=== PATIENT | female | born 1965 | race Caucasian/White ===

== ENCOUNTER → 2022-07-28 09:26 | Outpatient (BNVA) | payer OTHER, SELFPAY | PROVIDERS: PCP Podiatrist Foot & Ankle Surgery; Visit Provider Anesthesiology | DX: M47.812 Spondylosis without myelopathy or radiculopathy, cervical region (principal); M50.30 Other cervical disc degeneration, unspecified cervical region; E11.40 Type 2 diabetes mellitus with diabetic neuropathy, unspecified; B35.1 Tinea unguium; M17.12 Unilateral primary osteoarthritis, left knee; G89.4 Chronic pain syndrome | CPT/HCPCS: 99202 ==

== ENCOUNTER 2022-12-09 10:15 | Day surgery (SDC) | payer OTHER, SELFPAY ==
[2022-12-02 14:55] VITALS: BMI 25.6
--- NOTE | 2022-12-09 | ECG_ITS ---
Test Reason : arrhythmia Blood Pressure : / mmHG Vent. Rate : 064 BPM Atrial Rate : 064 BPM P-R Int : 166 ms QRS Dur : 102 ms QT Int : 416 ms P-R-T Axes : 075 054 047 degrees QTc Int : 429 ms Normal sinus rhythm with sinus arrhythmia Normal ECG No previous ECGs available Referred By: Davi Haley Electronically Signed By:ALICIA EDMONDS MD
--- NOTE | ~2022-12-09 | FL_ITS ---
EXAMINATION: XR FLUOROSCOPY WITH IMAGES CLINICAL INFORMATION: Spinal cord stimulation trial COMPARISON: None. TECHNIQUE: Fluoroscopy Supervised By: Dr. Hung Tejada. Fluoroscopy Time: 2.6 minutes. Cumulative Dose: 55.5 mGy. DAP: 15.1 Gycm2. Images: 3. FINDINGS: There are 2 spinal stimulator electrodes seen ascending the posterior spinal canal. The electrode tips are at level of mid thoracic spine. There is no visible kinking or defect of the leads. FL/FL guidance in OR IMPRESSION: Fluoroscopy for pain management procedure.
[2022-12-09 10:41] LABS: Glucose, Whole Blood 87 mg/dL (60-115)
[2022-12-09] MEDS: Lactated Ringers 1,000 ML 50 ML IVCONT (10:47)
[2022-12-09 10:50] VITALS: BP 116/55; PULSE 83; RESP 18; TEMP 36.7; O2SAT 98
--- NOTE | 2022-12-09 11:24 | MHC.SHP ---
Pre-Procedural Eval Section A Date of Service: 12/09/22 Section B Chief Complaint: Type 2 diabetes mellitus with diabetic neuropathy, Details of Present Illness: as above Relevant Family History (Specify if Yes): No Relevant Social History: Other (specify) Present Medications: None Medical History: No relevant PMH History of Previous Operations: No relevant previous surgery Allergies: Allergies Allergy/AdvReac Type Severity Reaction Status Date / Time bupropion [From Wellbutrin] Allergy throat Verified 12/09/22 10:55 closes - hives clonidine Allergy throat Verified 12/09/22 10:55 closes levofloxacin Allergy Becomes Verified 12/09/22 10:55 Violent varenicline [From Chantix] Allergy Violent Verified 12/09/22 10:55 Behavior Review of Systems Sugical H&P ROS: Negative: Cardiovascular, Respiratory, Neurological, Psychiatric, Hem-Onc, Allergic/Immunologic, Gastrointestinal, Genitourinary, Musculoskeletal, Integumentary, Endocrine and Eyes/Ears/Nose/Throat and Yes, Specify: Constitution (morbid obesity) Exam Surgical H&P Exam: Normal: HEENT, Normal: Heart, Normal: Lungs, Normal: Extremities, Normal: Abdomen, Normal: Skin and Normal: Neurological Plan Diagnosis/Plan: Unchanged I have reviewed the history and physical and performed a pertinent physical examination on my patient. No changes have occurred unless specified. Time Spent With Patient Time: Total time managing care of this patient today ____ minutes.
--- NOTE | 2022-12-09 11:29 | HO.ANESPROP2 ---
HPI - Anesthesia Eval Consult details Narrative: 57 F for spinal cord stim trial Denies any Chest pain , or any other heart issues . h/o drug induced cva in the past with left sided weakness , weakness resolved . [facility] Active Problems Active Problems: All Active Problems (Updated 12/02/22 @ 14:27 by Lauren Hoskins RN) Spondylosis of cervical joint without myelopathy (Acute) Degeneration, intervertebral disc, cervical (Acute) Diabetic neuropathy (Acute) Onychomycosis (Acute) Arthritis of left knee (Acute) Chronic pain syndrome (Acute) Past Medical History Medical History Abnormal MRI Agoraphobia Anxiety Bipolar 1 disorder Chronic low back pain Chronic pain of left knee Chronic rhinitis Cigarette smoker Colon polyps COPD (chronic obstructive pulmonary disease) Depression GERD (gastroesophageal reflux disease) History of breast cancer History of CVA (cerebrovascular accident) History of ovarian cancer History of seizure History of substance abuse Hyperlipidemia Iron deficiency Migraines Neck pain HAL (obstructive sleep apnea) PTSD (post-traumatic stress disorder) Severe cervical dysplasia, histologically confirmed Toenail fungus Type 2 diabetes mellitus Urinary and fecal incontinence Vitamin B12 deficiency Vitamin D deficiency Functional capacity: independent ambulation Family History Family history of problems with anesthesia: No Surgical History Surgical History History of bladder suspension procedure History of left knee surgery History of lumpectomy of right breast History of rhinoplasty History of right inguinal hernia repair Hx of colonoscopy Hx of total hysterectomy History of Problems with Anesthesia: No Social History Social History Household Members Other:: Twin Sister Are you a primary housekeeper caregiver to a significant other at home: No Do you presently have visiting nurse or other home services: Yes (Home Health Aid) Patient Tobacco Use Status: Former Tobacco user Quit Date: 2021 Tobacco use type: Cigarette Years Smoked: 45 Use of substances other than those prescribed or required for medical reasons: No Have you been hit, kicked, punched, or otherwise hurt by someone within the past year? If so, by whom?: No Are you DNR?: No Advance Directives: No Advance Directives Information Provided: Yes Advance Directives on File: No Recently lost weight without trying: No Eating poorly because of decreased appetite: No Nutrition Risks: No Nutritional Risk Patient : No Meds Allergies Allergy/AdvReac Type Severity Reaction Status Date / Time bupropion [From Wellbutrin] Allergy throat Verified 12/09/22 10:55 closes - hives clonidine Allergy throat Verified 12/09/22 10:55 closes levofloxacin Allergy Becomes Verified 12/09/22 10:55 Violent varenicline [From Chantix] Allergy Violent Verified 12/09/22 10:55 Behavior Active Medications: Current Medications Lactated Ringer's (Lr) 1,000 mls @ 50 mls/hr IVCONT .Q20H LI Last Admin: 12/09/22 10:47 Dose: 50 mls/hr Home Medications Medication Instructions Recorded Confirmed Last Taken Type amitriptyline 10 mg tablet 10 mg PO BEDTIME 07/28/22 12/02/22 Unknown History atorvastatin 20 mg tablet 20 mg PO DAILY 07/28/22 12/02/22 Unknown History azelastine 137 mcg (0.1 %) nasal 2 spray intranasal BID 07/28/22 12/02/22 Unknown History spray aerosol cetirizine 10 mg tablet 10 mg PO DAILY 07/28/22 12/02/22 Unknown History famotidine 20 mg tablet 20 mg PO BID 07/28/22 12/02/22 12/09/22 History fluticasone propionate 230 2 puff inhalation BID 07/28/22 12/02/22 12/09/22 History mcg-salmeterol 21 mcg/actuation HFA inhaler (Advair HFA) glucagon 1 mg solution for mg IM ONCE PRN diabetes mellitus 07/28/22 Unknown History injection (Glucagon Emergency Kit) hydroxyzine pamoate 25 mg capsule 25 mg PO BID 07/28/22 12/02/22 12/09/22 History ipratropium bromide 17 2 puff inhalation QID 07/28/22 12/02/22 12/09/22 History mcg/actuation HFA aerosol inhaler (Atrovent HFA) lisinopril 10 mg tablet 10 mg PO DAILY 07/28/22 12/02/22 Unknown History metformin 1,000 mg tablet 1,000 mg PO BID 07/28/22 12/02/22 Unknown History sumatriptan succinate 100 mg tablet 0 mg PO PRN Migraine Headache 07/28/22 Unknown History temazepam 30 mg capsule 30 mg PO BEDTIME PRN insomnia 07/28/22 12/02/22 Unknown History cholecalciferol (vitamin D3) 25 1 cap PO DAILY 12/02/22 12/02/22 Unknown History mcg (1,000 unit) capsule (Vitamin D3) cyanocobalamin (vitamin B-12) 250 1 tab PO DAILY 12/02/22 12/02/22 Unknown History mcg tablet ferrous sulfate 325 mg (65 mg 1 tab PO DAILY 12/02/22 12/02/22 12/02/22 History iron) tablet (FeroSul) melatonin 3 mg tablet 1 - 2 tab PO BEDTIME PRN insomnia 12/02/22 12/02/22 Unknown History triamcinolone acetonide 55 mcg 1 spray intranasal DAILY 12/02/22 12/02/22 12/09/22 History nasal spray aerosol (Nasacort) Exam Exam Date and Time: December 09, 2022 112 Height,Weight and Vital Signs: Height 5 ft 10.5 in Weight 82.1 kg Last Vital Signs Temp 98.1 F 12/09/22 10:50 Pulse 83 12/09/22 10:50 Resp 18 12/09/22 10:50 BP 116/55 L 12/09/22 10:50 Pulse Ox 98 12/09/22 10:50 O2 Del Method 12/09/22 10:50 Pertinent Lab Results Pertinent Lab Results: Laboratory Tests 12/09/22 10:37 POC Glucose 87 Airway Mallampati Class: IV Neck ROM: Limited Denture: Upper and Lower Loose/Missing/Broken Teeth: Yes Heart: S1,S2 Lungs: b/l breath sounds Assessment and Plan Assessment Anesthesia Assessment: Anesthesia Plan Discussed and Chart Reviewed Final Anesthetic Review Family History of Problems with Anesthesia: No History of Problems with Anesthesia: No NPO: Yes ASA Class: IV Final Preanesthetic Review: Meds/Allgs Chart Reviewed, Consent Obtained/Reviewed and Anes Risks/Benef Reviewed Patient Risk: High Procedure Risk: Intermediate Anesthetic Plan Anesthetic Plan: MAC: Disposition: Standard PACU
[2022-12-09 12:41] VITALS: BP 131/65; PULSE 75; RESP 18; TEMP 36.5; O2SAT 98
--- NOTE | 2022-12-09 12:44 | P.BOP_ITS ---
Brief Operative Note Date of Service: 12/09/22 Pre-op diagnosis: diabetic peripheral polyneuropathy Post-op diagnosis: same Procedure: trial of SCS Adenikero Surgeon: Hung Tejada MD Anesthesia: MAC Was an [employer] used for this Procedure?: No Estimated blood loss (mL): 2 Pathology: none sent Condition: stable Disposition: PACU
--- NOTE | 2022-12-09 12:45 | P.OP_ITS ---
Operative Note Operative Note Date of Service: 12/09/22 Narrative: Sarah JIMENEZ is a very pleasant 57 years old female who came today into the operating room for the trial of spinal cord stimulator Nevro for the treatment of DPN. Preoperatively patient received? Cefazolin 2 g? approximately 30 min before procedure. After obtaining informed consent patient was brought to the operating room,? she was positioned? supine on the stretcher, [employer] [employer] monitors were applied and patient ? was sedated. ? Time-out was performed delineating correct site, side, the nature of the procedure, patient's allergy, preoperative antibiotic if needed.? All operating room staff was participating in OR time-out procedure. Patient's entire back was prepped with ChloraPrep twice and draped with full body fenestrated drape.? Sterilely draped C-arm was brought over operating field and sqare picture of T11-T12 L1 L2 vertebrae as were demonstrated on the screen.??? Attention FIRST? was concentrated on the L1-L2 epidural interspace? on the right. The location of the projection of the right pedicle? upper portion of the _L3 vertebra was found on the skin using C-arm. .? This location was injected with mixture of lidocaine 2% and ropivacaine 0.5% 5 cc.? After that 11 blade was used to make a yoan on the skin.? 10 cm 14 gauge introducer epidural needle was inserted through the yoan and advanced to L1-L2 epidural interspace.? The advancement of the needle was performed on anterior posterior and lateral views.?RUIZ to air was used to detect epidural space.? When needle entered the epidural space loss of resistance was felt and guitar wire inserted in the epidural fashion.? After that epidural lead was advanced into the needle and proceed into posterior epidural space slightly left to the midline until it reached bottom T8 vertebra projection.. After that attention was concentrated on the left side where incertion of the epidural lead was performed in mirroring fashion. This time the tip of the lead was stopped at the top of T10 vertebra projection.. Position of the both of the leads were verified in the posterior epidural space by the two separate lateral views. The needle was withdrawn, care was taken not to dislodge the epidural lead.? Anchoring device was advanced? on the epidural leads until it reached the level of the skin.? The anchoring device was stitched to the skin with 2 0- 0 silk sutures and anchoring screw was? Tightened up upon the anchoring device until 3 clicks were heard. ?the distal end of the epidural lead was connected to the testing device.? Sterile dressing was applied.? At this moment the patient was awaken transferred to recovery room where she recovered uneventfully.? She went home without immediate complications.
[2022-12-09 12:56] VITALS: BP 141/67; PULSE 66; RESP 16; O2SAT 99
[2022-12-09 13:11] VITALS: BP 142/59; PULSE 63; RESP 16; O2SAT 100
[2022-12-09 13:26] VITALS: BP 135/67; PULSE 65; RESP 18; O2SAT 99
--- NOTE | 2022-12-09 13:32 | HO.POSTANES ---
Post Anesthesia Evaluation Post Anesthesia Evaluation Vital Signs: Vital Signs Temp Pulse Resp BP Pulse Ox O2 Del Method 12/09/22 13:26 65 18 135/67 99 Room Air 12/09/22 13:11 63 16 142/59 H 100 Room Air 12/09/22 12:56 66 16 141/67 H 99 Room Air 12/09/22 12:41 97.7 F 75 18 131/65 98 Room Air 12/09/22 10:50 98.1 F 83 18 116/55 L 98 Room Air Anesthesia: Monitored Mental Status: Awake Pain Control: Satisfactory Nausea/Vomiting: None Hydration: Adequate Anesthesia-Related Issues: No Anes. Related Issues Comments: Intr-op / post op patient found to be in sinus arrhythmia. Patient asymptomatic currently, she does endorse occasional dizziness . Advised to follow-up with PCP and possibly cardiology .
[2022-12-09 13:41] VITALS: BP 125/58; PULSE 65; RESP 18; TEMP 36.2; O2SAT 99
[2022-12-09 13:51] LABS: Glucose, Whole Blood 124 mg/dL (60-115)
== END 2022-12-09 14:23 | disposition home or self-care (01) ==
PROVIDERS: PCP Internal Medicine; Visit Provider Anesthesiology
PROC: (CPT 63650; principal; 2022-12-09 11:30)
DX: M47.812 Spondylosis without myelopathy or radiculopathy, cervical region (principal); M50.30 Other cervical disc degeneration, unspecified cervical region; E11.42 Type 2 diabetes mellitus with diabetic polyneuropathy; M54.50 Low back pain, unspecified; G89.4 Chronic pain syndrome; M17.12 Unilateral primary osteoarthritis, left knee; G43.909 Migraine, unspecified, not intractable, without status migrainosus; E55.9 Vitamin D deficiency, unspecified; G47.33 Obstructive sleep apnea (adult) (pediatric); Z79.84 Long term (current) use of oral hypoglycemic drugs; Z79.899 Other long term (current) drug therapy; Z88.8 Allergy status to other drugs, medicaments and biological substances
CPT/HCPCS: 63650 ×2; 82947; 93005; C1713; C1897; J0690; J2250; J2795; J3010

== ENCOUNTER → 2022-12-16 10:34 | Outpatient (BNVA) | payer OTHER, SELFPAY | PROVIDERS: PCP Internal Medicine; Visit Provider Anesthesiology | DX: M47.812 Spondylosis without myelopathy or radiculopathy, cervical region (principal); M50.30 Other cervical disc degeneration, unspecified cervical region; M17.12 Unilateral primary osteoarthritis, left knee; E11.40 Type 2 diabetes mellitus with diabetic neuropathy, unspecified; B35.1 Tinea unguium; G89.4 Chronic pain syndrome | CPT/HCPCS: 99212 ==

== ENCOUNTER 2023-01-07 08:36 | Day surgery (SDC) | payer OTHER, SELFPAY ==
[2023-01-04 11:11] VITALS: BMI 25.6
--- NOTE | 2023-01-06 12:36 | HO.ANESPROP2 ---
Documented by User: Madhuri Spring NP 01/06/23 12:39 HPI - Anesthesia Eval Consult details Narrative: 57yo F for Spinal Cord Stimulator Implant s/p trial 12/2022 with TIVA h/o drug induced cva in the past with left sided weakness , weakness? resolved . [facility] Active Problems Active Problems: All Active Problems (Updated 12/02/22 @ 14:27 by Lauren Hoskins RN) Spondylosis of cervical joint without myelopathy (Acute) Degeneration, intervertebral disc, cervical (Acute) Diabetic neuropathy (Acute) Onychomycosis (Acute) Arthritis of left knee (Acute) Chronic pain syndrome (Acute) Past Medical History Medical History Abnormal MRI Agoraphobia Anxiety Bipolar 1 disorder Chronic low back pain Chronic pain of left knee Chronic rhinitis Cigarette smoker Colon polyps COPD (chronic obstructive pulmonary disease) Depression GERD (gastroesophageal reflux disease) History of breast cancer History of CVA (cerebrovascular accident) History of ovarian cancer History of seizure History of substance abuse Hyperlipidemia Iron deficiency Migraines Neck pain HAL (obstructive sleep apnea) PTSD (post-traumatic stress disorder) Severe cervical dysplasia, histologically confirmed Toenail fungus Type 2 diabetes mellitus Urinary and fecal incontinence Vitamin B12 deficiency Vitamin D deficiency Family History Family history of problems with anesthesia: No Surgical History Surgical History History of bladder suspension procedure History of left knee surgery History of lumpectomy of right breast History of rhinoplasty History of right inguinal hernia repair Hx of colonoscopy Hx of total hysterectomy S/P placement of nerve stimulator History of Problems with Anesthesia: No Social History Social History Household Members Other:: Twin Sister Are you a primary career development specialist to a significant other at home: No Do you presently have visiting nurse or other home services: Yes (home health aid) Patient Tobacco Use Status: Former Tobacco user Quit Date: 2021 Tobacco use type: Cigarette Years Smoked: 45 Use of substances other than those prescribed or required for medical reasons: No Have you been hit, kicked, punched, or otherwise hurt by someone within the past year? If so, by whom?: No Are you DNR?: No Advance Directives: No Advance Directives Information Provided: Yes (brochure mailed) Advance Directives on File: No Recently lost weight without trying: No Eating poorly because of decreased appetite: No Nutrition Risks: No Nutritional Risk Meds Allergies Allergy/AdvReac Type Severity Reaction Status Date / Time bupropion [From Wellbutrin] Allergy throat Verified 12/16/22 10:54 closes - hives clonidine Allergy throat Verified 12/16/22 10:54 closes levofloxacin Allergy Becomes Verified 12/16/22 10:54 Violent varenicline [From Chantix] Allergy Violent Verified 12/16/22 10:54 Behavior Home Medications Medication Instructions Recorded Confirmed Last Taken Type amitriptyline 10 mg tablet 10 mg PO BEDTIME 07/28/22 01/04/23 Unknown History atorvastatin 20 mg tablet 20 mg PO DAILY 07/28/22 01/04/23 Unknown History azelastine 137 mcg (0.1 %) nasal 2 spray intranasal BID 07/28/22 01/04/23 Unknown History spray aerosol cetirizine 10 mg tablet 10 mg PO DAILY 07/28/22 01/04/23 Unknown History famotidine 20 mg tablet 20 mg PO BID 07/28/22 01/04/23 12/09/22 History fluticasone propionate 230 2 puff inhalation BID 07/28/22 01/04/23 12/09/22 History mcg-salmeterol 21 mcg/actuation HFA inhaler (Advair HFA) glucagon 1 mg solution for 1 mg IM ONCE PRN diabetes mellitus 07/28/22 01/04/23 Unknown History injection (Glucagon Emergency Kit) hydroxyzine pamoate 25 mg capsule 25 mg PO BID 07/28/22 01/04/23 12/09/22 History ipratropium bromide 17 2 puff inhalation QID 07/28/22 01/04/23 12/09/22 History mcg/actuation HFA aerosol inhaler (Atrovent HFA) lisinopril 10 mg tablet 10 mg PO DAILY 07/28/22 01/04/23 Unknown History metformin 1,000 mg tablet 1,000 mg PO BID 07/28/22 01/04/23 Unknown History sumatriptan succinate 100 mg tablet 100 mg PO DAILY PRN Migraine 07/28/22 01/04/23 Unknown History Headache temazepam 30 mg capsule 30 mg PO BEDTIME PRN insomnia 07/28/22 01/04/23 Unknown History cholecalciferol (vitamin D3) 25 1 cap PO DAILY 12/02/22 01/04/23 Unknown History mcg (1,000 unit) capsule (Vitamin D3) cyanocobalamin (vitamin B-12) 250 1 tab PO DAILY 12/02/22 01/04/23 Unknown History mcg tablet ferrous sulfate 325 mg (65 mg 1 tab PO DAILY 12/02/22 01/04/23 12/02/22 History iron) tablet (FeroSul) melatonin 3 mg tablet 1 - 2 tab PO BEDTIME PRN insomnia 12/02/22 01/04/23 Unknown History triamcinolone acetonide 55 mcg 1 spray intranasal DAILY 12/02/22 01/04/23 12/09/22 History nasal spray aerosol (Nasacort) clonazepam 1 mg tablet 1 mg PO DAILY 12/16/22 01/04/23 Unknown History lidocaine 5 % topical patch 1 patch topical DAILY 12/16/22 01/04/23 Unknown History methocarbamol 750 mg tablet 750 mg PO TID 12/16/22 01/04/23 Unknown History Exam Exam Date and Time: January 06, 2023 1236 Height,Weight and Vital Signs: Height 5 ft 10.5 in Weight 82.1 kg Narrative Narrative: EKG 12/2022 Vent. Rate : 064 BPM ? ? Atrial Rate : 064 BPM ?? P-R Int : 166 ms? QRS Dur : 102 ms ? ? QT Int : 416 ms ? ? ? P-R-T Axes : 075 054 047 degrees ?? QTc Int : 429 ms ? Normal sinus rhythm with sinus arrhythmia Normal ECG No previous ECGs available Assessment and Plan Assessment Anesthesia Assessment: Chart Reviewed Final Anesthetic Review Family History of Problems with Anesthesia: No History of Problems with Anesthesia: No Documented by User: Enriqueta Jones MD 01/07/23 10:29 [facility] Past Medical History Medical History Abnormal MRI Agoraphobia Anxiety Bipolar 1 disorder Chronic low back pain Chronic pain of left knee Chronic rhinitis Cigarette smoker Colon polyps COPD (chronic obstructive pulmonary disease) Depression GERD (gastroesophageal reflux disease) History of breast cancer History of CVA (cerebrovascular accident) History of ovarian cancer History of seizure History of substance abuse Hyperlipidemia Iron deficiency Migraines Neck pain HAL (obstructive sleep apnea) PTSD (post-traumatic stress disorder) Severe cervical dysplasia, histologically confirmed Toenail fungus Type 2 diabetes mellitus Urinary and fecal incontinence Vitamin B12 deficiency Vitamin D deficiency Patient : No Surgical History Surgical History History of bladder suspension procedure History of left knee surgery History of lumpectomy of right breast History of rhinoplasty History of right inguinal hernia repair Hx of colonoscopy Hx of total hysterectomy S/P placement of nerve stimulator Social History Social History Household Members Other:: Twin Sister Are you a primary career development specialist to a significant other at home: No Do you presently have visiting nurse or other home services: Yes (home health aid) Patient Tobacco Use Status: Former Tobacco user Quit Date: 2021 Tobacco use type: Cigarette Years Smoked: 45 Use of substances other than those prescribed or required for medical reasons: No Have you been hit, kicked, punched, or otherwise hurt by someone within the past year? If so, by whom?: No Are you DNR?: No Advance Directives: No Advance Directives Information Provided: Yes (brochure mailed) Advance Directives on File: No Recently lost weight without trying: No Eating poorly because of decreased appetite: No Nutrition Risks: No Nutritional Risk Meds Allergies Allergy/AdvReac Type Severity Reaction Status Date / Time bupropion [From Wellbutrin] Allergy throat Verified 12/16/22 10:54 closes - hives clonidine Allergy throat Verified 12/16/22 10:54 closes levofloxacin Allergy Becomes Verified 12/16/22 10:54 Violent varenicline [From Chantix] Allergy Violent Verified 12/16/22 10:54 Behavior Home Medications Medication Instructions Recorded Confirmed Last Taken Type amitriptyline 10 mg tablet 10 mg PO BEDTIME 07/28/22 01/04/23 Unknown History atorvastatin 20 mg tablet 20 mg PO DAILY 07/28/22 01/04/23 Unknown History azelastine 137 mcg (0.1 %) nasal 2 spray intranasal BID 07/28/22 01/04/23 Unknown History spray aerosol cetirizine 10 mg tablet 10 mg PO DAILY 07/28/22 01/04/23 Unknown History famotidine 20 mg tablet 20 mg PO BID 07/28/22 01/04/23 12/09/22 History fluticasone propionate 230 2 puff inhalation BID 07/28/22 01/04/23 12/09/22 History mcg-salmeterol 21 mcg/actuation HFA inhaler (Advair HFA) glucagon 1 mg solution for 1 mg IM ONCE PRN diabetes mellitus 07/28/22 01/04/23 Unknown History injection (Glucagon Emergency Kit) hydroxyzine pamoate 25 mg capsule 25 mg PO BID 07/28/22 01/04/23 12/09/22 History ipratropium bromide 17 2 puff inhalation QID 07/28/22 01/04/23 12/09/22 History mcg/actuation HFA aerosol inhaler (Atrovent HFA) lisinopril 10 mg tablet 10 mg PO DAILY 07/28/22 01/04/23 Unknown History metformin 1,000 mg tablet 1,000 mg PO BID 07/28/22 01/04/23 Unknown History sumatriptan succinate 100 mg tablet 100 mg PO DAILY PRN Migraine 07/28/22 01/04/23 Unknown History Headache temazepam 30 mg capsule 30 mg PO BEDTIME PRN insomnia 07/28/22 01/04/23 Unknown History cholecalciferol (vitamin D3) 25 1 cap PO DAILY 12/02/22 01/04/23 Unknown History mcg (1,000 unit) capsule (Vitamin D3) cyanocobalamin (vitamin B-12) 250 1 tab PO DAILY 12/02/22 01/04/23 Unknown History mcg tablet ferrous sulfate 325 mg (65 mg 1 tab PO DAILY 12/02/22 01/04/23 12/02/22 History iron) tablet (FeroSul) melatonin 3 mg tablet 1 - 2 tab PO BEDTIME PRN insomnia 12/02/22 01/04/23 Unknown History triamcinolone acetonide 55 mcg 1 spray intranasal DAILY 12/02/22 01/04/23 12/09/22 History nasal spray aerosol (Nasacort) clonazepam 1 mg tablet 1 mg PO DAILY 12/16/22 01/04/23 Unknown History lidocaine 5 % topical patch 1 patch topical DAILY 12/16/22 01/04/23 Unknown History methocarbamol 750 mg tablet 750 mg PO TID 12/16/22 01/04/23 Unknown History Exam Airway Mallampati Class: II TM Dist: >3cm Neck ROM: Full Denture: Upper and Lower Heart: RRR Lungs: CTA Assessment and Plan Final Anesthetic Review NPO: Yes ASA Class: III Final Preanesthetic Review: No Changes in Pt Med Stat, Meds/Allgs Chart Reviewed, Consent Obtained/Reviewed and Anes Risks/Benef Reviewed Patient Risk: Intermediate Procedure Risk: Low Anesthetic Plan Anesthetic Plan: MAC: Disposition: Standard PACU
[2023-01-07] VITALS (10 sets, daily range): BP systolic 119–163; BP diastolic 55–85; PULSE 52–103; RESP 16–20; TEMP 36.1–36.9; O2SAT 95–100
--- NOTE | ~2023-01-07 | FL_ITS ---
EXAMINATION: XR FLUOROSCOPY WITH IMAGES CLINICAL INFORMATION: Spinal stimulator implant. COMPARISON: Fluoroscopic spot views 12/09/2022. TECHNIQUE: Fluoroscopy Supervised By: Dr. Hung Tejada. Fluoroscopy Time: 3.6 minutes. Cumulative Dose: 64.3 mGy. DAP: 17.1 Gycm2. Images: 2. FINDINGS: There are 2 spinal stimulator electrodes seen ascending the posterior spinal canal. The electrode tips are at level of mid thoracic spine. There is no visible kinking or defect of the leads. There are multilevel degenerative changes thoracic spine with variable disc narrowing and vertebral spurring. FL/FL guidance in OR IMPRESSION: Fluoroscopy for pain management procedure.
--- NOTE | 2023-01-07 09:21 | P.HPSUR_ITS ---
Pre-Procedural Eval Section A Date of Service: 01/07/23 The patient is an INPATIENT: No Changes since office visit: Yes Patient answered all questions The History & Physical has been completed within 30 days and I have reviewed it.: No Section B Chief Complaint: Type 2 diabetes mellitus with diabetic neuropathy, Details of Present Illness: as above Relevant Family History (Specify if Yes): No Relevant Social History: None Present Medications: see Short Stay Collaborative assessment Medical History: No relevant PMH History of Previous Operations: Relevant previous surgery/procedure and date(s) Allergies: Allergies Allergy/AdvReac Type Severity Reaction Status Date / Time bupropion [From Wellbutrin] Allergy throat Verified 12/16/22 10:54 closes - hives clonidine Allergy throat Verified 12/16/22 10:54 closes levofloxacin Allergy Becomes Verified 12/16/22 10:54 Violent varenicline [From Chantix] Allergy Violent Verified 12/16/22 10:54 Behavior Review of Systems Sugical H&P ROS: Negative: Cardiovascular, Respiratory, Psychiatric, Hem-Onc, Allergic/Immunologic, Gastrointestinal, Genitourinary, Musculoskeletal, Int egumentary and Eyes/Ears/Nose/Throat and Yes, Specify: Constitution (morbid obesity), Neurological (neuropathy of the lower extremities.) and Endocrine (Diabetes mellitus.) Exam Surgical H&P Exam: Normal: HEENT, Normal: Heart, Normal: Lungs, Normal: Extremities, Normal: Skin and Normal: Neurological and Significant Findings: Abdomen (enlarged 2 to i/a & s/q fat) Plan Diagnosis/Plan: Unchanged I have reviewed the history and physical and performed a pertinent physical examination on my patient. No changes have occurred unless specified. Time Spent With Patient Time: Total time managing care of this patient today ____ minutes.
[2023-01-07] MEDS: Lactated Ringers 1,000 ML 100 ML IVCONT (10:24)
[2023-01-07 10:39] LABS: Glucose, Whole Blood 130 mg/dL (60-115)
--- NOTE | 2023-01-07 10:39 | P.OP_ITS ---
Operative Note Operative Note Date of Service: 01/07/23 Narrative: Indira Menjivar is very pleasant 57 y.o. female who came today into the operating room for implantation of spinal cord stimulator for the treatment of chronic pain syndrome secondary DPN bilateral LE.. Preoperatively? patient received ?cefazolin 2 g approximately 30 minutes before the procedure. After obtaining informed consent the patient was brought to the operating room, She was positioned supine on the stretcher? [place] [employer] monitors were applied and general anesthesia was induced with endotracheal intubation.? After that patient was transferred to the operating table prone, all pressure points were protected. ?Time-out was performed delineating correct site, side, the nature of the procedure, patient's allergy, preoperative antibiotic if needed.? All operating room staff was participating in OR time-out procedure. Patient's entire back was prepped with ChloraPrep twice and draped with full body fenestrated drape and ioban film.? Sterilely draped C-arm was brought over operating field and square picture of? T12-L1 and D9xdankfook as were demonstrated on the screen.? The skin was? infiltrated with the mixture of lidocaine 2% and ropivacaine 0.5% in the projection of m L2 and L3? spinouse procesess.?? After that? number 10 Blade scalpel was used to perform strict midline 7 cm? long incision.? the incision was widened and deepened until the prevertebral fascia was reached. Thorough hemostasis was obtained,? After that attention? was concentrated on the L1-L2 epidural interspace.? The location of the projection of the right pedicle center of the? L3 vertebra was found on the fascia using C-arm.? This location was injected with mixture of lidocaine 2% and Marcaine 0.5% 5 cc.? ? 10 cm 14 gauge? introducer epidural needle was inserted through the prevertebral fascia and advanced to? L1- L2 epidural interspace.? The advancement of the needle was performed on anterior posterior and lateral views.? Guitar wire and loss of resistance technique were used to locate epid ural space.? When guitar wire was spread in the epidural fashion, epidural lead was inserted through the needle and it was advanced to the posterior epidural space.The lead was advanced strictly on the midline? approximately to the? top of T8 vertebra in the posterior epidural space. ? After that location of the projection of the LEFT pedicle center of the L3 vertebra was found using C-arm.? This location was injected with mixture of lidocaine 2% and Marcaine 0.5% 5 cc.?10 cm 14 gauge? introducer epidural needle was inserted through the fascia and advanced to L1- L2 epidural interspace.? The advancement of the needle was performed on anterior posterior and lateral views.? Guitar wire and loss of resistance technique were used to locate epidural space. When guitar wire was spread in the epidural fashion, epidural lead was inserted through the needle and it was advanced to the posterior epidural space.The lead was advanced strictly on the midline? approximately to the? mid of T9 vertebra in the posterior epidural space. After that the? epidural lead was advanced? slightly left to the midline? to the top of the? T9 vertebra in the posterior epidural space slightly left to the existing electrode.?On the lateral view the leads were demonstrated in the posterior epidural space. ? After satisfactory position of the leads were established the needles were withdrawn, the stylette wires were removed from the epidural leads.? The anchoring devices were dislodged on the leads and advanced to the level of the prevertebral fascia.?After that the anchoring devices were sutured to the prevertebral fascia using Tycron 0-0 sutures - 2 sutures per each anchoroing device?. The fixation scews were locked until 3 clicks heard. The wound was irrigated with vancomycin containing saline and packed with the 4x4 soaked with the same saline solution. After that attention was concentrated on the right upper buttock of the patient ? were the decision was made to implant the battery.? 3 cm below the top of the right iliac crest horizontal incision was made 6.5 cm long using 10 blade scalpel, hemostasis was performed using? electric cautery..? Using sharp and dull dissection pocket for the battery was formed in caudad direction from the incision.? Thorough hemostasis was performed.? After that the? wound pocket was? irrigated with vancomycin containing normal saline and tunneling device was used to connect midline incision and upper buttock incision.? The epidural leads were dislodged from midline incision to the buttock incision through the tunneling device.? After that they were connected to the Omnia battery? and impedance was checked? and found to be satisfactory with all leads connected.? There were no electrodes with low impedance noted.? Anchoring? screws were fixed on the back of the battery.? Tycron of 0- 0 sutures were applied to the superior lateral and superior medial corners of the upper portion of the pocket? wound and after that the anchoring sutures were connected to the anchoring orifices on the battery.? The leads were gathered behind the body of the battery and battery was dislodged into the? subcutaneous pocket wound.? The sutures were tied and? irrigation was repeated.? After that?0-0 Polysorb sutures?were used to close the? both wounds and the 0-2 polisorb sutures were used to apptoximate the level of the skin , Nasima were applied to the skin and bacitracin ointment was applied to the staple lines. The sterile dressing comprised of several 4x4 for each wound was affixed to the skin using tegaderm. The patient was transfered supine on the stretcher,? awaken, extubated and transferred stable to the PACU.? ?
--- NOTE | 2023-01-07 10:45 | PM.OP ---
Brief Operative Note Date of Service: 01/07/23 Pre-op diagnosis: peripheral diabetic polyneuropathy Post-op diagnosis: same Procedure: implantation of Nevro SCS Implants: SCS battery Omnia (NEVRO) and 2 epidural stimulating leads Surgeon: Hung Tejada MD Anesthesia: GETA Was an [employer] Project Manager used for this Procedure?: No Estimated blood loss (mL): 11 Pathology: none sent Condition: stable Disposition: PACU
[2023-01-07] MEDS: fentaNYL citrate/PF 100 MCG/2 ML VIAL 50 MCG IVPUSH ×2 (13:05→13:11)
--- NOTE | 2023-01-07 13:08 | HO.POSTANES ---
Post Anesthesia Evaluation Post Anesthesia Evaluation Vital Signs: Vital Signs Temp Pulse Resp BP Pulse Ox O2 Del Method 01/07/23 10:23 97.6 F 86 18 130/77 95 Room Air Anesthesia: General Endotracheal-GETA Mental Status: Awake Pain Control: Satisfactory Nausea/Vomiting: None Hydration: Adequate Anesthesia-Related Issues: No Anes. Related Issues
[2023-01-07] MEDS: Acetaminophen 1,000 MG/100 ML PIGGYBACK 400 MG IV (13:09)
[2023-01-07] MEDS: oxyCODONE HCl Immed Release 5 MG TABLET PO (13:29)
== END 2023-01-07 14:14 | disposition home or self-care (01) ==
PROVIDERS: PCP Internal Medicine; Visit Provider Anesthesiology
PROC: (CPT 63685; principal; 2023-01-07 10:20)
DX: E11.40 Type 2 diabetes mellitus with diabetic neuropathy, unspecified (principal); G89.4 Chronic pain syndrome; M47.812 Spondylosis without myelopathy or radiculopathy, cervical region; M50.30 Other cervical disc degeneration, unspecified cervical region; M17.12 Unilateral primary osteoarthritis, left knee; B35.1 Tinea unguium; J44.9 Chronic obstructive pulmonary disease, unspecified; G47.33 Obstructive sleep apnea (adult) (pediatric); F31.9 Bipolar disorder, unspecified; F43.10 Post-traumatic stress disorder, unspecified; F40.00 Agoraphobia, unspecified; Z79.51 Long term (current) use of inhaled steroids; Z79.84 Long term (current) use of oral hypoglycemic drugs; Z79.899 Other long term (current) drug therapy; Z88.8 Allergy status to other drugs, medicaments and biological substances; Z86.73 Personal history of transient ischemic attack (TIA), and cerebral infarction without residual deficits; Z85.3 Personal history of malignant neoplasm of breast; Z87.891 Personal history of nicotine dependence; Z90.710 Acquired absence of both cervix and uterus; Z98.890 Other specified postprocedural states
CPT/HCPCS: 63685; 63650 ×2; 82947; C1713; C1778; C1787; C1816; J0131; J0690; J1100; J2250; J2405; J2795; J3010; J3370

== ENCOUNTER → 2023-01-13 10:23 | Outpatient (BNVA) | payer OTHER, SELFPAY | PROVIDERS: PCP Internal Medicine; Visit Provider Anesthesiology | DX: M47.812 Spondylosis without myelopathy or radiculopathy, cervical region (principal); M50.30 Other cervical disc degeneration, unspecified cervical region; E11.40 Type 2 diabetes mellitus with diabetic neuropathy, unspecified; B35.1 Tinea unguium; M17.12 Unilateral primary osteoarthritis, left knee; G89.4 Chronic pain syndrome | CPT/HCPCS: 99212 ==

== ENCOUNTER → 2023-01-20 09:52 | Outpatient (BNVA) | payer OTHER, SELFPAY | PROVIDERS: PCP Internal Medicine; Visit Provider Anesthesiology | DX: Z48.02 Encounter for removal of sutures (principal); G89.4 Chronic pain syndrome; M47.812 Spondylosis without myelopathy or radiculopathy, cervical region; M50.30 Other cervical disc degeneration, unspecified cervical region; M54.50 Low back pain, unspecified; M17.12 Unilateral primary osteoarthritis, left knee; E11.40 Type 2 diabetes mellitus with diabetic neuropathy, unspecified; Z96.82 Presence of neurostimulator | CPT/HCPCS: 99212 ==

== ENCOUNTER 2025-08-13 11:09 | Outpatient (AMB) | payer OTHER, SELFPAY ==
--- OUTSIDE RECORDS SUMMARY | 2025-08-07 10:36 | XMS_ITS | Encounter Summary ---
Author Organization [facility] Address [address] [place] [address] Care Team Providers Care Middleware Systems Architect Name Role Phone Berta Aiken MD Primary Care Prov ider Reason for Referral * Imaging (Routine) - Closed Specialty Diagnoses / Procedures Referred By Contac t Referred To Contact Radiology Diagnoses Personal history of nicotine dependence Encounter for screening for malignant neoplasm of respiratory organs Procedures CT Lung Screening Demarcus Brunner MD [address] [address] Phone: tel: fax: [address] [address] Phone: tel: Referral ID Status Reason Start Date Expiration Date Visits Re quested Visits Authorized [id number] Closed 06/20/2025 06/20/2026 1 1 Reason for Visit * Imaging (Routine) - Closed Specialty Diagnoses / Procedures Referred By Seven [email or web address] Referred To Contact Radiology Diagnoses Personal history of nicotine dependence Encounter for screening for malignant neoplasm of respiratory organs Procedures CT Lung Screening Demarcus Brunner MD [address] [address] Phone: tel: fax: [address] [address] Phone: tel: Referral ID Status Reason Start Date Expiration Date Visits Re quested Visits Authorized [id number] Closed 06/20/2025 06/20/2026 1 1 Encounter Details Date Type Department Care Team (Latest Contact Info) Description 08/07/2025 10:36 AM EDT - 08/07/2025 11:59 PM EDT Hospital Encounter [facility] CT Scan [address] [place] [address] Personal history of nicotine dependence; Encounter for screening for malignant neoplasm of respiratory organs Discharge Disposition: Home or Self Care Social History Tobacco Use Types Packs/Day Years Used Date Smoking Tobacco: Former Smokeless Tobacco: Never Alcohol Use Standard Drinks/Week Comments Not Currently 0 (1 standard drink = 0.6 oz pur e alcohol) Housing Instability Answer Date Recorde d Are you worried that in the next 2 months you may not have stable housing? Yes 12/27/2024 Food Access & Nutrition Answer Date Rec orded Do you have access to a vari ety of food including fruits and vegetables? No 12/27/2024 Access to Healthcare Answer Date Record ed Within the last 3 months, phill greer many times did you visit the emergency department for your medical care? 2 12/27/2024 Health Literacy Answer Date Recorded How often do you need to hav e someone help you when you read instructions, pamphlets, or other written material from your doctor or pharmacy? Often 12/27/2024 Caregiver: How often do you need to have someone help you when you read instructions, pamphlets, or other written material from your doctor or pharmacy? Not on file 12/27/2024 Financial Risk Answer Date Recorded How hard is it for you to pa y for the very basics like food, housing, medical care, and air conditioning / heating? Hard 12/27/2024 Transportation Answer Date Recorded Has the lack of transportati on kept you from meetings, work, or from getting things needed for daily living? No Has the lack of transportati on kept you from medical appointments or from getting medications? No 12/27/2024 Social Isolation Answer Date Recorded How often do you feel lonely or isolated from th ose around you? Often 12/27/2024 Food Risk Answer Date Recorded Within the past 12 months we worried whether our food would run out before we got money to buy more. Sometimes true 025 Within the past 12 months th e food we bought just didn't last and we didn't have money to get more. Often true 12/27/2024 Dependent Care Answer Date Recorded Do you need help finding or paying for care for your loved ones. For example, childcare administrator or elderly care for an older adult? Unable to respond 12/27/2024 Education Answer Date Recorded Do you think completing more education or training, like finishing a GED, going to college, or learning a trade, would be helpful for you? N/A 12/27/2024 Employment and Income Answer Date Recor ded During the last four weeks, have you been actively looking for work? Unable to respond 12/27/2024 Living Situation Answer Date Recorded What is your living situation? Unrecognized valu e 12/27/2024 Comments No Sex and Gender Information Value Date Recorded Sex Assigned at Female 09/14/2024 9:18 AM EST Legal Sex Female 9:43 PM EST Gender Identity Female 09/14/2024 9:18 AM EST Sexual Orientation Straight 09/14/2024 9: 18 AM EST documented as of this encounter Medications at Time of Discharge acetaminophen (TYLENOL) 325 mg tablet TAKE 2 TABLETS BY MOUTH EVERY 6 HOURS NEEDED FOR PAIN OR MILD TO MODERATE PAIN. MAX OF 3000MG ACETAMINOPHEN PER DAY. 90 tablet 3 10/11/2024 alpha lipoic acid 600 mg capsule Take 1 capsule by mouth 1 (one) time each day. 02/05/2019 ALPRAZolam (XANAX) 0.5 mg tablet Take 1 tablet (0.5 mg total) by mouth. amitriptyline (ELAVIL) 10 mg tablet TAKE 1 TABLET BY MOUTH AT BEDTIME 90 tablet 1 05/29/2025 Atrovent HFA 17 mcg/actuation inhaler INHALE 2 PUFFS INTO THE LUNGS TWICE DAILY 12.9 g 3 05/13/2025 azelastine (ASTELIN) 137 mcg (0.1 %) nasal sprayIndications: Perennial allergic rhinitis Administer 2 sprays into each nostril 2 (two) times a day. Use in each nostril as directed 30 mL 11 07/23/2025 B-Complex tablet Take 1 tablet by mouth 1 (one) time each day. 90 tablet 1 03/27/2025 09/23/20 25 blood-glucose meter kit Use to check blood sugar twice daily 06/08/2021 brexpiprazole (REXULTI) 2 mg tablet Take 2 mg by mouth. cetirizine (ZyrTEC) 10 mg tablet TAKE 1 TABLET BY MOUTH EVERY DAY 90 tablet 03/18/2025 cholecalciferol (VITAMIN D-3) 50 mcg (2,000 unit) tablet TAKE 1 TABLET BY MOUTH DAILY 90 tablet 1 02/22/2025 clonazePAM (KlonoPIN) 1 mg tablet Take 1 tablet (1 mg total) by mouth 3 times daily as needed. 08/10/2023 cyanocobalamin (VITAMIN B-12) 500 mcg tablet TAKE 1 TABLET BY MOUTH DAILY 90 tablet 02/05/2025 Dairy-Aid 3,000 unit tablet TAKE 1 TABLET BY MOUTH THREE TIMES DAILY NEEDED WITH DAIRY CONTAINING MEALS. 32 tablet 3 10/11/2024 diclofenac (Voltaren) 1 % topical gel Apply 2 g topically 2 (two) times a day. 360 g 1 03/27/2025 09/23/20 25 EPINEPHrine (EpiPen 2-Benson) 0.3 mg/0.3 mL injection Inject 0.3 mL (0.3 mg total) into the thigh if needed for anaphylaxis. 2 each 07/17/2025 famotidine (PEPCID) 20 mg tablet TAKE 1 TABLET BY MOUTH TWICE DAILY 180 tablet 1 07/24/2025 ferrous sulfate 325 mg (65 mg elemental iron) tablet TAKE 1 TABLET BY MOUTH EVERY DAY 90 tablet 1 03/29/2025 fluticasone propionate (FLONASE) 50 mcg/actuation nasal sprayIndications: Chronic rhinitis SHAKE LIQUID AND USE 2 SPRAYS IN EACH NOSTRIL DAILY 16 g 11 08/06/2025 fluticasone-umecl idinium-vilantero l (Trelegy Ellipta) 100-62.5-25 mcg inhaler INHALE 1 PUFF INTO THE LUNGS DAILY 1 each 11 12/24/2024 12/24/19 26 freestyle (FreeStyle Lancets) 28 gauge lancets USE DIRECTED TO TEST BLOOD SUGAR TWICE DAILY 200 each 06/05/2025 FreeStyle Lite Meter monitoring kitIndications:Ty pe 2 diabetes mellitus with diabetic neuropathy, without long-term current use of insulin ([facility] V24, [facility] V28),Type 2 diabetes mellitus with obesity USE DIRECTED TO MONITOR BLOOD SUGAR TWO TIMES DAILY 1 each 06/10/2025 gabapentin (NEURONTIN) 300 mg capsule Take 1 capsule (300 mg total) by mouth 3 (three) times a day. 90 capsule 1 07/23/2025 gabapentin (NEURONTIN) 600 mg tablet TAKE 1 TABLET BY MOUTH THREE TIMES DAILY 270 tablet 1 07/22/2025 glucagon (GLUCAGEN INJ) Inject as directed. glucose blood test strip Use as instructed 200 strip 06/05/2025 hydrOXYzine pamoate (VISTARIL) 25 mg capsule Take 2 capsules (50 mg total) by mouth 2 (two) times a day. 08/11/2023 ipratropium-albut Benedicto (DUONEB) 0.5-2.5 mg/3 mL nebulizer solutionIndicatio ns:Chronic obstructive pulmonary disease, unspecified COPD type ([facility] V24, [facility] V28),Moderate persistent asthma without complication Take 3 mL by nebulization 4 (four) times a day if needed for wheezing or shortness of breath (and cough). 1080 mL 3 10/29/2024 10/29/20 25 lamoTRIgine (LaMICtal) 100 mg tablet Take 1.5 tablets (150 mg total) by mouth 1 (one) time each day. 03/19/2024 lisinopriL (PRINIVIL,ZESTRIL ) 5 mg tablet Take 1 tablet (5 mg total) by mouth 1 (one) time each day. 30 each 5 07/23/2025 01/20/20 26 melatonin 3 mg tablet Take 1 tablet (3 mg total) by mouth at bedtime. 01/08/2023 meloxicam (MOBIC) 15 mg tablet TAKE 1 TABLET BY MOUTH DAILY 90 tablet 1 05/29/2025 meloxicam (MOBIC) 7.5 mg tablet Take 1 tablet (7.5 mg total) by mouth 1 (one) time each day. 03/28/2025 metFORMIN (GLUCOPHAGE) 1,000 mg tablet Take 1 tablet (1,000 mg total) by mouth 1 (one) time each day with breakfast. 90 tablet 03/27/2025 methocarbamoL (ROBAXIN) 750 mg tablet Take 1 tablet (750 mg total) by mouth 3 (three) times a day. 270 each 1 03/15/2025 09/11/20 mupirocin (BACTROBAN) 2 % creamIndications: Umbilical pain Apply topically 3 (three) times a day for 10 days. 15 g 08/05/2025 08/15/20 olopatadine (PATADAY) 0.2 % ophthalmic solution Place 1 Drop into both eyes daily as needed for Other (As needed for itching or tear). 09/21/2021 peg 400-propylene glycol (Lubricant Eye, PG-PEG 400,) 0.4-0.3 % drops Administer 1 drop into both eyes 2 (two) times a day. 12/08/2023 sertraline (ZOLOFT) 100 mg tablet Take 2 tablets (200 mg total) by mouth 1 (one) time each day. 12/01/2023 SUMAtriptan (IMITREX) 100 mg tablet Take 1 tablet (100 mg total) by mouth 1 (one) time if needed. 01/09/2019 temazepam (RESTORIL) 30 mg capsule 1 capsule (30 mg total) at bedtime. 07/27/2023 traMADoL (ULTRAM) 50 mg tabletIndications :Arthritis of knee, left TAKE 1 TABLET(50 MG) BY MOUTH EVERY 6 HOURS FOR UP TO 10 DAYS NEEDED FOR SEVERE PAIN. MAX DAILY AMOUNT: 200 MG 30 tablet 07/24/2025 Ventolin HFA 90 mcg/actuation inhaler INHALE 2 PUFFS BY MOUTH EVERY 4 HOURS NEEDED FOR COUGH OR WHEEZING OR SHORTNESS OF BREATH 18 g 3 05/31/2025 tirzepatide, weight loss, (Zepbound) 2.5 mg/0.5 mL solutionIndicatio ns:Type 2 diabetes mellitus with diabetic neuropathy, with long-term current use of insulin ([facility] V24, [facility] V28) Inject 2.5 mg under the skin every 7 (seven) days. 2 mL 1 07/11/2025 08/10/20 25 documented as of this encounter Discharge Disposition Disposition Code Departure Means Destination Home or Self Care documented in this encounter Plan of Treatment Upcoming Encounters Date Type Department Care Team (Late st Contact Info) Description 08/30/2025 1:30 PM EDT Office Visit Adult Medicine [facility] [place] [address] [place] [address] Chano Wright PA [address] [place] [address] 09/11/2025 4:00 PM EST Office Visit Pulmonology - [place] [address] [phone] Kristen Mckeon NP [address] [place] [address] 09/18/2025 9:15 AM EST Office Visit Orthopedic Surgery [address] [phone] Andry Ruff DPM [address] [phone] 10/10/2025 10:00 AM EST Office Visit Adult Medicine [facility] [address] [place] [address] Berta Aiken MD [address] [place] [address] 10/29/2025 10:00 AM EST Office Visit Orthopedic Surgery [address] [phone] Andry Ruff DPM [address] [phone] 11/01/2025 9:45 AM EST Hospital Encounter [address] [phone] Andry Ruff DPM [address] [phone] 11/01/2025 9:45 AM EST - 11/01/2025 11:30 AM EST Surgery [facility] OR [address] [place] [phone] Andry Ruff DPM [address] [phone] BUNIONECTOMY-Left [65013 (CPT ) +2 more] 11/07/2025 9:15 AM EST Appointment Radiology Department [address] [phone] 11/14/2025 10:00 AM EST Office Visit Orthopedic Surgery - [place] [address] [phone] Andry Ruff DPM [address] [phone] 01/08/2026 9:30 AM EDT Office Visit Gastroenterology [facility] 175 [facility] 175 [facility] [address] [place] [phone] Lindsay Sneed PA 175 [facility] [address] [place] [address] Pending Results Name Type Priority Associated Diagnoses Date /Time CT Lung Screening Imaging Routine Personal history of nicotine dependence Encounter for screening for malignant neoplasm of respiratory organs 08/07/2025 11:11 AM EDT Scheduled Orders Name Type Priority Associated Diagnoses Orde r Schedule CT Lung Screening Imaging Routine Personal history of nicotine dependence Encounter for screening for malignant neoplasm of respiratory organs Once for 1 Occurrences starting 08/07/2025 until 08/07/2025 Scheduled Procedures Name Priority Associated Diagnoses Date/Ti nv BUNIONECTOMY Acquired hallux valgus of left foot Hammer toe of left foot Metatarsalgia of left foot 11/01/2025 9:45 AM EST documented as of this encounter Visit Diagnoses Diagnosis Acquired hallux valgus of left foot Hammer toe of left foot Metatarsalgia of left foot Personal history of nicotine dependence Encounter for screening for malignant neoplasm of respiratory organs Acquired hallux valgus of left foot Hammer toe of left foot Metatarsalgia of left foot documented in this encounter Additional Health Concerns Assessment Noted Time PHQ-9 Depression Total Score: 17 025 3:21 PM EST documented as of this encounter Care Teams Middleware Systems Architect Relationship Specialty Start Date End Date Berta Aiken MD [address] [place] [id number] PCP - General Internal Medicine 03/03/21 documented as of this encounter
--- OUTSIDE RECORDS SUMMARY | 2025-08-08 07:12 | XMS_ITS | Encounter Summary ---
Author Organization [facility] Address [address] [place] [address] Care Team Providers Care Swabber Name Role Phone Berta Aiken MD Primary Care Prov ider Reason for Referral * Imaging (Routine) - Pending Review Specialty Diagnoses / Procedures Referred By Contac t Referred To Contact Radiology Diagnoses Umbilical pain Procedures US Abdomen Limited Chano Wright PA [address] [place] [address] Phone: tel: fax: [address] [phone] Phone: tel: Referral ID Status Reason Start Date Expiration Date V isits Requested Visits Authorized [id number] Pending Review 08/02/2025 08/02/2026 1 1 Reason for Visit * Imaging (Routine) - Pending Review Specialty Diagnoses / Procedures Referred By Contac t Referred To Contact Radiology Diagnoses Umbilical pain Procedures US Abdomen Limited Chano Wright PA [address] [place], [place] Phone: tel: fax: [address] [address] Phone: tel: Referral ID Status Reason Start Date Expiration Date V isits Requested Visits Authorized [id number] Pending Review 08/02/2025 08/02/2026 1 1 Encounter Details Date Type Department Care Team (Latest Contact Info) Description 08/08/2025 7:12 AM EDT - 08/08/2025 11:59 PM EDT Hospital Encounter [facility] Ultrasound [address] [place] [phone] Umbilical pain Discharge Disposition: Home or Self Care Social [...] Record ed Within the last 3 months, ho w many times did you visit the emergency [...] care for your loved ones. For example, child adolescent psychiatrist or elderly care for an older adult? [...] each day. 90 tablet 1 03/27/2025 09/23/20 blood-glucose meter kit Use to check blood [...] neuropathy, without long-term current use of insulin (CMS/HCC V24, CMS/HCC V28),Type 2 diabetes mellitus with obesity USE [...] ns:Chronic obstructive pulmonary disease, unspecified COPD type (CMS/HCC V24, CMS/HCC V28),Moderate persistent asthma without complication Take 3 [...] a day. 270 each 1 03/15/2025 09/11/20 25 mupirocin (BACTROBAN) 2 % creamIndications: Umbilical pain [...] neuropathy, with long-term current use of insulin ([facility] V24, [facility] V28) Inject 2.5 mg under the skin every 7 (seven) days. 2 mL 1 07/11/2025 08/10/20 25 documented as of this encounter Discharge Disposition Disposition Code Departure Means Destination Home or Self Care documented in this encounter Plan of Treatment Upcoming Encounters Date Type Department Care Team (Late st Contact Info) Description 08/30/2025 1:30 PM EDT Office Visit Adult Medicine [facility] [address] [place] [address] Chano Wright PA [address] [place] [address] 09/11/2025 4:00 PM EST Office Visit Pulmonology - [place] 175 [facility] [address] [place] [phone] Kristen Mckeon NP [address] [place] [address] 09/18/2025 9:15 AM EST Office Visit Orthopedic Surgery - [place] [address] [phone] Andry Ruff DPM [address] [phone] 10/10/2025 10:00 AM EST Office Visit Adult Medicine [facility] [address] [place] [address] Berta Aiken MD [address] [place] [address] 10/29/2025 10:00 AM EST Office Visit Orthopedic Surgery [facility] [address] [phone] Andry Ruff DPM [address] [phone] 11/01/2025 9:45 AM EST Hospital Encounter [facility] Main OR [address] [place] [phone] Andry Ruff DPM [address] [phone] 11/01/2025 9:45 AM EST - 11/01/2025 11:[address] [facility] Main OR [address] [place] [phone] Andry Ruff DPM [address] [phone] BUNIONECTOMY-Left [36921 (CPT ) +2 more] 11/07/2025 9:15 AM EST Appointment Radiology Department [address] [address] 11/14/2025 10:00 AM EST Office Visit Orthopedic Surgery - [place] 250 175 [facility] [address] [place] [phone] Andry Ruff DPM 175 [facility] 250 [place] [phone] 01/08/2026 9:30 AM EDT Office Visit Gastroenterology - [place] 175 [facility] 175 [facility] [address] [place] [phone] Lindsay Sneed PA 175 [facility] [address] [place] [address] Scheduled Procedures Name Priority Associated Diagnoses Date/Ti me BUNIONECTOMY Acquired hallux valgus of left foot Hammer toe of left foot Metatarsalgia of left foot 11/01/2025 9:45 AM EST documented as of this encounter Procedures Procedure Name Priority Date/Time Associated Diagnosis Comments US ABDOMEN LIMITED Routine 08/08/2025 7: 43 AM EDT Umbilical pain documented in this encounter Results * US Abdomen Limited (08/08/2025 7:43 AM EDT) Anatomical Region Laterality Modality Body Ultrasound 08/12/2025 4:53 PM EDT Impressions 08/12/2025 4:55 PM EDT 2.2 cm hypoechoic area the to the umbilicus. This is nonspecific. It could represent a phlegmon given reported history of pain, redness, and discharge. No drainable fluid collection evident. -------- FINAL REPORT -------- Dictated By: Kalyan Moran Dictated Date: 08/12/2025 16:53 ET Assigned Physician: Kalyan Moran Reviewed and Electronically Signed By: Kalyan Moran Signed Date: 08/12/2025 16:55 ET Workstation ID: [id number] Transcribed By: Self Edit Transcribed Date: 08/12/2025 16:53 ET Narrative 08/12/2025 4:55 PM EDT PROCEDURE: Right upper quadrant ultrasound. HISTORY: umbilical pain with redness and discharge. COMPARISON: None. TECHNIQUE: Grayscale and color Doppler ultrasound evaluation of the area of concern in the periumbilical region. FINDINGS: Targeted ultrasound of the paraumbilical region. There is a 2.2 x 1.1 x 1.3 cm hypoechoic area in the subcutaneous soft tissues. No associated vascularity on color Doppler imaging. Procedure Note Kalyan Moran MD - 08/12/2025 PROCEDURE: Right upper quadrant ultrasound. HISTORY: umbilical pain with redness and discharge. COMPARISON: None. TECHNIQUE: Grayscale and color Doppler ultrasound evaluation of the areaof concern in the periumbilical region. FINDINGS: Targeted ultrasound of the paraumbilical region. There is a 2.2 x 1.1 x1.3 cm hypoechoic area in the subcutaneous soft tissues. No associatedvascularity on color Doppler imaging. IMPRESSION: 2.2 cm hypoechoic area the to the umbilicus. This is nonspecific. Itcould represent a phlegmon given reported history of pain, redness, anddischarge. No drainable fluid collection evident. -------- FINAL REPORT -------- Dictated By: Kalyan Moran Dictated Date: 08/12/2025 16:53 ET Assigned Physician: Kalyan Moran Reviewed and Electronically Signed By: Kalyan Moran Signed Date: 08/12/2025 16:55 ET Workstation ID: [id number] Transcribed By: Self Edit Transcribed Date: 08/12/2025 16:53 ET Chano FONTAINEG US PROCEDURES Final Result documented in this encounter Visit Diagnoses Diagnosis Acquired hallux valgus of left foot Hammer toe of left foot Metatarsalgia of left foot Umbilical pain Abdominal pain, unspecified site Acquired hallux valgus of left foot Hammer toe of left foot Metatarsalgia of left foot documented in this encounter Additional Health Concerns Assessment Noted Time PHQ-9 Depression Total Score: 17 025 3:21 PM EST documented as of this encounter Care Teams Swabber Relationship Specialty Start Date End Date Berta Aiken MD [address] [place] [id number] PCP - General Internal Medicine 03/03/21 documented as of this encounter
--- NOTE | 2025-08-13 11:17 | MHC.AMNUTRGE ---
VS Expanded 08/13/25 11:17 08/13/25 11:24 Height 5 ft 11 in 5 ft 11 in Weight 215 lb 2.738 oz 215 lb BMI 30.0 30.0 Intake Visit Reasons: Obesity Allergies bupropion (From Wellbutrin) Allergy (Verified 01/20/23 10:18) throat closes - hives clonidine Allergy (Verified 01/20/23 10:18) throat closes levofloxacin Allergy (Verified 01/20/23 10:18) Becomes Violent varenicline (From Chantix) Allergy (Verified 01/20/23 10:18) Violent Behavior Nutrition Presentation Details: Pt present for MNT for obesity Pt also has type 2 DM Pt reports she is on zepbound 2.5 mg/0.5ml/wke ,reports weight prior to zepbound at 230 lbs. Pt reports highest wt at 415 lbs in 2014 and working on weight loss via diet and exercise and most recently with zepbound Pt reports keeping physical active as able , walking 1 -4 miles 3 x/wk fluids: water, low sugar beverages typical meal intake 10 am toast with cinnamon, r coffee ice coffee with caramel swirl (DD) snack on crackers, water /luis e trav dinner : chilly chicken/pork/steak rice veg -following healthy plate method food frequency fruits: 0-1/d veg: daily dairy- uses lactose free d/t intolerance, 3-c/d fish: crustaceous 1/wk RUQ-Qnpdszs-Vz.Jeor Equation Height: 5 ft 11 in Weight: 215 lb Resting Metabolic Rate: 1659.93 Calculated Activity Level: Mild Activity Calories Needed to Maintain Weight: 2282.40 Diagnosis Nutrition problem #1: overweight/obesity As related to (etiology) #1: diagnosis As evidenced by (sign/symptom) #1: high BMI [facility] Medical History Abnormal MRI Agoraphobia Anxiety Bipolar 1 disorder Chronic low back pain Chronic pain of left knee Chronic rhinitis Cigarette smoker Colon polyps COPD (chronic obstructive pulmonary disease) Depression GERD (gastroesophageal reflux disease) History of breast cancer History of CVA (cerebrovascular accident) History of ovarian cancer History of seizure History of substance abuse Hyperlipidemia Iron deficiency Migraines Neck pain HAL (obstructive sleep apnea) PTSD (post-traumatic stress disorder) Severe cervical dysplasia, histologically confirmed Toenail fungus Type 2 diabetes mellitus Urinary and fecal incontinence Vitamin B12 deficiency Vitamin D deficiency Surgical History History of bladder suspension procedure History of left knee surgery History of lumpectomy of right breast History of rhinoplasty History of right inguinal hernia repair Hx of colonoscopy Hx of total hysterectomy S/P placement of nerve stimulator Social History Household Members Other:: Twin Sister Are you a primary career development coordinator to a significant other at home: No Do you presently have visiting nurse or other home services: Yes (home health aid) Comment: has walker-not using at present Patient Tobacco Use Status: Former Tobacco user Tobacco use type: Cigarette Years Smoked: 45 Assessment & Plan Assessment & Plan (1) Obesity (BMI 30.0-34.9): Code(s): E66.811 - Obesity, class 1 Category: Medical Plan: Pt with obesity with T2DM, Pt's goal wt 200lbs current wt: 98 kg ( 08/24 ) est kcal needs as per MSJ: 2300 est protein needs as per 1-1.2 g/kg BW: 100-120 est fluid needs as per 30 ml/kg BW: 3000 Recommended fiber > 12 g /day and gradually increase up to 25-28 g /day or as tolerated Nutrition topics discussed : Reviewed (R), Pt verbalized understanding (V) , not applicable (N/A) R, : Healthy Plate Method Concept: R, : Carbohydrates: food sources of carbohydrates, relationship of carbohydrates to blood glucose, fatty liver GI health. Recommended total amount of carbohydrates per meals and snack. Differences between simple carbohydrates and complex carbohydrates R, : Lean protein foods including vegan , vegetarian sources of protein. Benefits of protein (including but not limited to healing, nutritional value , benefits in weight loss, glucose control R, : Fats : Source of fats, benefits of fats. Difference between saturated and unsaturated fats. Saturated fats and its contribution to inflammation R, V, N/A: Fiber: food sources and role of fiber in the diet (including but not limited to its role as a prebiotic, benefits in constipation, role in IBS , role in glucose control and cholesterol level) R, : Hydration: role of hydration and prevention of dehydration or over hydration. Foods and water content. R, V, N/A: Vitamins and Minerals in foods and supplements R, V, N/A: Interpreting food labels, including serving size, macronutrients, vitamins, minerals, allergens, ingredient list , % daily value Patient Instructions: Have a meal replacement at breakfast Choose lower fat food options (steamed, add less butter/oils, baked instead of fried Coding Level of Care Code Nutr Indiv Intake (80679) Diagnoses Obesity (BMI 30.0-34.9) E66.811 Time Spent (min) 30
--- OUTSIDE RECORDS SUMMARY | 2025-08-13 13:28 | XMS_ITS | Continuity of Care Document ---
Author Name [facility], Medical Address [address] [place] [address] Organization Unknown Address [address] [place] [address] Medications No known medications Problems No known problems
--- OUTSIDE RECORDS SUMMARY | 2025-08-13 13:28 | XMS_ITS | Encounter Summary ---
Author Organization [facility] Address [address] [place] [address] Care Team Providers Care Order Expediter Name Role Phone Berta Aiken MD Primary Care Prov ider Encounter Details Date Type Department Care Team ([facility] Contact Info) Description 08/05/2025 Results Follow-Up Adult Medicine [facility] [address] [place] [phone] Chano Wright PA [address] [place] [address] Social History Tobacco Use Types Packs/Day Years [...] care for your loved ones. For example, assistant child care teacher or elderly care for an older adult? [...] AM EST documented as of this encounter Plan of Treatment Upcoming Encounters Date Type Department Care Team ([facility] st Contact Info) Description 08/30/2025 1:30 PM EDT Office Visit Adult Medicine [facility] [address] [place] [address] Chano Wright PA [address] [place] [address] 09/11/2025 4:00 PM EST Office Visit Pulmonology - [place] 175 [facility] 200 [place] [phone] Kristen Mckeon NP [address] [place] [address] 09/18/2025 9:15 AM EST Office Visit Orthopedic Surgery - [place] [address] [phone] Andry Ruff DPM [address] [phone] 10/10/2025 10:00 AM EST Office Visit Adult Medicine - [place] [address] [place] [address] Berta Aiken MD [address] [place] [address] 10/29/2025 10:00 AM EST Office Visit Orthopedic Surgery [facility] [address] [phone] Andry Ruff DPM [address] [phone] 11/01/2025 9:45 AM EST Hospital Encounter [address] [phone] Andry Ruff DPM [address] [phone] 11/01/2025 9:45 AM EST - 11/01/2025 11:30 AM EST Surgery [address] [phone] Andry Ruff DPM [address] [phone] BUNIONECTOMY-Left [74717 (CPT ) +2 more] 11/07/2025 9:15 AM EST Appointment Radiology Department [address] [phone] 11/14/2025 10:00 AM EST Office Visit Orthopedic Surgery - [place] 250 175 [facility] 250 [place] [phone] Andry Ruff, DPM 175 [facility] [address] [place] [phone] 01/08/2026 9:30 AM EDT Office Visit Gastroenterology [facility] 175 [facility] 175 [facility] 200 [place] [phone] Lindsay Sneed PA 175 [facility] 200 [place] [address] Scheduled Procedures Name Priority Associated Diagnoses Date/Ti me BUNIONECTOMY Acquired hallux valgus of left foot Hammer toe of left foot Metatarsalgia of left foot 11/01/2025 9:45 AM EST documented as of this encounter Visit Diagnoses Not on filedocumented in this encounter Additional Health Concerns Assessment Noted Time PHQ-9 Depression Total Score: 17 12/19/2 025 3:21 PM EST documented as of this encounter Care Teams Order Expediter Relationship Specialty Start Date End Date Berta Aiken MD [address] [place] [address] PCP - General Internal Medicine 03/03/21 documented as of this encounter
--- OUTSIDE RECORDS SUMMARY | 2025-08-13 13:28 | XMS_ITS | Clinical Summary ---
Author Organization [facility] Address [address] [place] [address] Care Team Providers Care Dental Office Manager Name Role Phone Berta Aiken Primary Care Provide r Unavailable Allergies Active Allergy Reactions Criticality Noted Date Comments Allerg Xt,D.Farinae-D.Pterony s Unknown 10/06/2020 Bee Venom Protein (Honey Bee) Swelling High 04/08/2016 Blueberry Flavor Hives 05/16/2015 Bluberry fruit Bupropion Anaphylaxis,Hives,Ra sh High 05/16/2015 Hives Clonidine Anaphylaxis,Hives High 08/13/2015 Cow Dander Unknown 06/13/2024 Grass Pollen Unknown 06/13/2024 Lactose Unknown 12/29/2023 Pt. stated that they are lactose intolerant Levofloxacin Angioedema High 05/27/2016 Reaction not mentioned Raspberry Unknown 04/08/2016 Tree And Shrub Pollen Unknown 10/06/2020 Varenicline Angioedema High 05/27/2016 violent behavior Medications acetaminophen (TYLENOL) 325 mg tablet Take 650 mg by mouth. 4 Active albuterol (PROAIR HFA,VENTOLIN HFA) 90 mcg inhaler Inhale 2 puffs by mouth. 4 Active alpha lipoic acid 600 mg capsule Take 600 mg by mouth. 4 Active ALPRAZolam (XANAX) 0.5 mg tablet Take 0.5 mg by mouth. Active amitriptyline (ELAVIL) 10 mg tablet Take 1 tablet by mouth at bed time. 3 Active atorvastatin (LIPITOR) 20 mg tablet Take 1 tablet by mouth once a day. 4 Active azelastine (ASTELIN) 137 mcg (0.1 %) nasal spray SMARTSI [place](s) Both Nares Twice Daily Active Freestyle Lite test strips USE TO TEST BLOOD SUGAR TWICE DAILY 4 Active cetirizine (ZyrTEC) 10 mg tablet Take 1 tablet by mouth once a day. 3 Active cholecalciferol (VITAMIN D3) 2,000 unit tablet Take 1 tablet by mouth once a day. 4 Active clonazePAM (KlonoPIN) 1 mg tablet Take 1 mg by mouth. 3 Active cyanocobalamin (VITAMIN B12) 500 mcg tablet Take 1 tablet by mouth once a day. 4 Active EPINEPHrine (EPIPEN) 0.3 mg/0.3 mL injection syringe SMARTSI Pre-Filled Pen Syringe IM Once 4 Active famotidine (PEPCID) 20 mg tablet Take 1 tablet by mouth 2 times a day. 3 Active ferrous sulfate 325 mg (65 mg iron) tablet Take 1 tablet by mouth once a day. 4 Active fluticasone propionate (FLONASE) 50 mcg/actuation nasal spray Administer 100 mcg into affected nostril(s). 4 Active Trelegy Ellipta 100-62.5-25 mcg blister with device SMARTSI Puff(s) Via Inhaler Daily Active gabapentin (NEURONTIN) 600 mg tablet Take 1 tablet by mouth 3 times a day. 3 Active gabapentin (NEURONTIN) 300 mg capsule Take 300 mg by mouth. 3 Active hydrOXYzine (VISTARIL) 25 mg capsule Take 25 mg by mouth. 3 Active Atrovent HFA 17 mcg/actuation inhaler SMARTSI Puff(s) Via Inhaler Twice Daily Active lamoTRIgine (LaMICtal) 100 mg tablet 4 Active lidocaine (LIDODERM) 5% patch SMARTSI Patch(s) Topical Daily 3 Active lisinopriL (PRINIVIL,ZESTR IL) 10 mg tablet Take 1 tablet by mouth once a day. 3 Active melatonin 3 mg tablet SMARTSI-2 Tablet(s) By Mouth Every Night PRN 4 Active meloxicam (MOBIC) 15 mg tablet SMARTSI Tablet(s) By Mouth Daily 4 Active metFORMIN (GLUCOPHAGE) 1,000 mg tablet Take 1,000 mg by mouth. 3 Active methocarbamoL (ROBAXIN) 750 mg tablet Take 1 tablet by mouth 3 times a day. 4 Active oxyCODONE IR (ROXICODONE) 5 mg tablet SMARTSI Tablet(s) By Mouth Every 6 Hours PRN 4 Active sertraline (ZOLOFT) 100 mg tablet Take 2 tablets by mouth once a day. 4 Active Saline NasaL 0.65 % nasal spray SMARTSI [place](s) Both Nares Every 3 Hours PRN 4 Active SUMAtriptan (IMITREX) 100 mg tablet 3 Active temazepam (RESTORIL) 30 mg capsule Take by mouth. 3 Active triamcinolone acetonide (KENALOG) 0.1% dental paste 2 times daily. 4 Active vitamin E 180 mg (400 unit) capsule SMARTSI Capsule(s) By Mouth Daily 4 Active Family History Medical History Relation Name Comments Cancer Father Cancer Mother Relation Name Status Comments Father Mother Social History Tobacco Use Types Packs/Day Years Used Date Smoking Tobacco: Former Cigarettes Smokeless Tobacco: Never Tobacco Cessation:Counseling Given: Not Answered Alcohol Use Standard Drinks/Week Comments Not Currently 0 (1 standard drink = 0.6 oz pur e alcohol) Comments Unknown Sex and Gender Information Value Date Recorded Sex Assigned at Female 03/28/2024 3:00 PM EDT Legal Sex Female 2:53 PM EDT Gender Identity Female 03/28/2024 3:00 PM EDT Sexual Orientation Not on file Last Filed Vital Signs Vital Sign Reading Time Taken Comments Blood Pressure - - Pulse - - Temperature - - Respiratory Rate - - Oxygen Saturation - - Inhaled Oxygen Concentration - - Weight 98.4 kg (217 lb) 06/13/2024 9:58 AM EDT Height 185.4 cm (6' 1 ) 06/13/2024 9:58 AM EDT Body Mass Index 28.63 06/13/2024 9:58 AM EDT Plan of Treatment Health Maintenance Due Date Last Done Comments Cologuard 1967 Colon Cancer Screening 1967 Colonoscopy 1967 FOBT / Fit Test 1967 HIV Screening 1967 Hepatitis C Screening 1967 Sigmoidoscopy 1967 Hepatitis B Vaccines (1 of 3 - 19+ 3-dose series) 1986 CT Lung Cancer Screening (Baseline) 2017 Pneumococcal Vaccine: 50+ Ye ars (2 of 2 - PCV) 12/04/2017 12/04/2016, 12/01/2015 Zoster Vaccines (2 of 2) 05/05/2018 03/10/2018 Alcohol/Substance Use Screening 10/31/2024 Depression Screening and Follow-Up 10/31/2024 Social Drivers of Health Ti[place] ual Screening 10/31/2024 COVID-19 Vaccine (5 - 2024-2 6 season) 2025 08/10/2023, 09/29/2021, 03/23/2021, Additional history exists Influenza Vaccine (#1) 2025 , 09/07/2021, 07/31/2020, Additional history exists DTaP,Tdap,and Td Vaccines (3 - Td or Tdap) 11/16/2033 11/16/2023, 12/01/2015 RSV Vaccine (60+ years old a nd patients) (1 - 1-dose 75+ series) 2042 Insurance [facility] [place] [id number] [facility] Care Teams Dental Office Manager Relationship Specialty Start Date End Date Berta Aiken [address] [place] [id number] PCP - General Internal Medicine 03/28/24
--- OUTSIDE RECORDS SUMMARY | 2025-08-13 13:28 | XMS_ITS | Continuity of Care Document ---
Author Name inst[facility], Medical Address [address] [place] [address] Organization Unknown Address [address] [place] [address] Medications No known medications Problems No known problems
--- OUTSIDE RECORDS SUMMARY | 2025-08-13 13:28 | XMS_ITS ---
Author Organization [facility] Address [address] [place] [phone] Phone Care Team Providers Care Resident Care Spec Name Role Phone Berta Aiken MD Primary Care Prov ider Active Problems Problem Noted Date Diagnosed Date Fainting 07/23/2025 Multiple allergies 06/28/2025 Acquired hallux valgus of left foot 05/08/2025 Hammer toe of left foot 05/08/2025 Metatarsalgia of left foot 05/08/2025 Cerebrovascular accident (CVA) ([facility] V24, [facility] V28) 04/03/2025 Bipolar disorder ([facility] V24, [facility] V28) 01/2025 Chronic obstructive pulmonar y disease ([facility] V24, [facility] V28) 04/03/2025 Diabetes mellitus ([facility] V24, [facility] V28) 01/2025 Diabetes mellitus with neuro jamey ([facility] V24, [facility] V28) 04/03/2025 B12 deficiency 04/03/2025 Urinary incontinence 04/03/2025 Moderate persistent asthma without complication 02/15/2025 Overweight (BMI 25.0-29.9) 02/15/2025 Microalbuminuria 12/20/2024 Hypertension 09/18/2024 Knee stiffness, left 03/22/2024 Status post total left knee replacement 01/17/20 24 History of knee replacement 12/28/2023 HAL (obstructive sleep apnea) 08/22/2023 Overview (07/30/2024): [facility] Home Sleep Apnea Test: Date08/25/2023 ; BMI 28.4 ; AHI 51; average oxygen saturation 92% (lowest 69 with saturations <88% for 5% or more of study) - Obstructive Sleep Apnea - severe; with sleep related hypoventilation by 2022 home sleep apnea test. [facility] Polysomnogram treatment study. Date 11/11/2019. Wt 250#; BMI 35; SE 58 % SM 64 %; spent 13 % of the study in REM. On BiPAP @ 09/05 (for entire study); RDI 0.2 (AHI 0.2), Central apneas 0; Obstructive apneas 0; Mixed apneas 0; hypopneas 1; RERAs 0; and, average oxygen saturation was 93%. For the entire study, PLMs ~10. Prestudy ESS 11; 2/4 RLS symptoms. Last Assessment & Plan: Patient states that she has symptoms of sleep apnea and she needs the machine. [place] scale 16. New polysomnogram has been ordered. Throat cancer ([facility] V24, [facility] V28) 023 Overview (04/03/2025): Pt will initiate tx after foot surgery S/P insertion of spinal cord stimulator 04/05/20 23 Esophageal dysmotility 12/16/2022 Moderate episode of recurren t major depressive disorder ([facility] V24, [facility] V28) 12/16/2022 Abnormal TSH 12/15/2022 Multinodular goiter 12/15/2022 Multiple thyroid nodules 12/15/2022 CKD (chronic kidney disease) 09/07/2022 Cigarette smoker 03/05/2021 Overview (07/30/2024): Last Assessment & Plan: Referral to lung cancer screening program. Patient benefits of including her in the lung cancer screening were discussed. Multiple decision accepted. Neuroforaminal stenosis of cervical spine 2020 Chronic pain of left knee 02/05/2021 History of cocaine abuse ([facility] V24, [facility] V 28) 02/05/2021 COVID-19 virus infection 10/25/2020 Conjunctivitis, allergic, bilateral 07/28/2020 Perennial allergic rhinitis 07/28/2020 Chronic low back pain 12/11/2019 Neck pain 12/11/2019 Type 2 diabetes mellitus with obesity 12/11/2019 Overview (07/31/2025): 07/31/25 Regulatory IMO Update Chronic rhinitis 12/06/2019 Itchy eyes 12/06/2019 Insufficient treatment with nasal CPAP 0 Arthritis of knee, left 08/14/2019 Mixed stress and urge urinary incontinence 08/26 Overview (07/30/2024): Seeing urogyn Type 2 diabetes mellitus wit h diabetic neuropathy ([facility] V24, [facility] V28) 11/23/2016 Toenail fungus 06/29/2016 Abnormal MRI 06/01/2016 Overview (07/30/2024): 1.5 cm left adrenal gland nodule 2013 / further MRI recommended / no further testing seen in transfer notes Severe cervical dysplasia, histologically confir med 01/26/2016 Overview (07/30/2024): History: Patient had a supra-cervical hysterectomy in 2002 PAP 01/02/2016: HSIL; High Risk HPV DNA positive Colposcopy 01/26/2016: A.CERVIX, BIOPSY (12:00 O'CLOCK): -MILD AND MODERATE SQUAMOUS DYSPLASIA (LOW GRADE AND HIGH-GRADE SQUAMOUS INTRAEPITHELIAL LESION, JAMESON-1 AND JAMESON-2). B.ENDOCERVIX-CURETTAGE: -MILD SQUAMOUS DYSPLASIA (LOW-GRADE SQUAMOUS INTRAEPITHELIAL LESION, JAMESON-1) INVOLVING DETACHED FRAGMENTS OF SQUAMOUS MUCOSA. -BENIGN ENDOCERVICAL GLANDULAR EPITHELIUM. Trachelectomy performed on 04/21/[address] Moyer. Pathology showed Severe Dysplasia; margins were clear. Colon polyps 12/01/2015 Overview (07/30/2024): [place] doen 12/2019- due 12/2022 Urinary and fecal incontinence 06/09/2015 Agoraphobia 05/16/2015 Anxiety 05/16/2015 Bipolar 1 disorder ([facility] V24, [facility] V28) COPD (chronic obstructive pu lmonary disease) ([facility] V24, [facility] V28) 05/16/2015 Overview (07/30/2024): Last Assessment & Plan: Patient was educated regarding the diagnosis of COPD. I congratulated her for quitting smoking I laid out a plan with her that include the followin. Continue using dual therapy with Advair 1 puff twice a day 230 mcg 2. Continue with ipratropium and albuterol as needed 3. Pulmonary function test to assess severity of PFT 4. We will consider pulmonary rehab if needed. Depression 05/16/2015 GERD (gastroesophageal reflux disease) 5 History of substance abuse ([facility] V24, [facility] V28) 05/16/2015 Hyperlipidemia 05/16/2015 Migraines 05/16/2015 PTSD (post-traumatic stress disorder) 05/16/2015 Vitamin B12 deficiency 05/16/2015 Vitamin D deficiency 05/16/2015 Iron deficiency 05/16/2015 Current Treatment and Therapy Plans No current plan information found. Past Treatment and Therapy Plans No past plan information found. Lifetime Dose Tracking * Chemical Lifetime Dose Automatic Entry Manual Entr y Fluoro Time 0.8 minutes 0.8 minutes 0 minutes Air Kerma 1 mGy 1 mGy 0 mGy Radiation (DLP) 166.52 mGy-cm 0 mGy-cm 166.52 mGy- cm CTDIvol 4.89 mGy 0 mGy 4.89 mGy
--- OUTSIDE RECORDS SUMMARY | 2025-08-13 13:28 | XMS_ITS | Encounter Summary ---
Author Organization [facility] Address [address] [place] [address] Encounters * CPT with [facility] on 2025-06-12 Member called CRU, c/o bilateral leg edema and burning pain. Member states swelling is up to her knees, with the rt leg having more swelling than the left. Member denies redness, hot to touch or fever. Member states onset of sx's 4 days ago. Member denies sob, streaking, weepiness or any other sx's. { reasonForRequest : pt is having issues with her feet, needs reconstruction and is having a hard time getting into the dr , patientReports : , denies&quo t;:[], chiefComplaints : Extremity Swelling , pmh : Diabetes Mellitus Type 2, Severe Persistent Mental Illness (SPMI), Migraine, COPD/Asthma, Hypertension, Gastroesophageal Reflux Disease (GERD) , allergies : Levofloxacin, Bupropion, Clonidine,Codeine , otherAllergies : , painAssessment : , visitOutcome : , additionalComments : HPI reviewed } Sent to a call for a pt complaining of foot swelling. [facility]8 arrives on scene, pt is alert and oriented, airway is patent. Pt complains of chronic dizziness (at baseline), neuropathy bilaterally in feetand chronic left foot swelling due to previous injury( pt is going to have surgery on left foot in Jul. Pt complains of worsening left foot swelling, right foot swelling and burning sensation bilaterally on toes described as a sunburn since Tuesday. Pt denies berry, cp, sob, n/v/d, fever, or loc. Pt states she takes Gabapentin 900mg TID. Pt states she contacted adaptive physical education teacher but is waiting for a response. Pt has CKD. Pt denies being on blood thinners or diuretics, or history of CHF. Pt BP:148/80, P:82, RR:18, SpO2:97% RA, T:98.7; Head: unremarkable; Lung sounds: clear bilaterally; Abdomen: soft, non-tender, no distention; Back: unremarkable; Extremities: (+)bilateral pedal pulses; swelling noted bilaterally (worse on left foot), no signs of infection noted; Skin: pink, warm, dry; Venous blood draw performed; [facility] consulted and pt is advised to follow up withpodiatrist. Red flags discussed. Pt has no further questions. IV_(FLUIDS_AND/OR_MEDICATION), MEDICATION_IM, ORAL_MEDICATION, WOUND_CARE, ORTHOSTATIC_VITAL_SIGNS Written [facility] 2025-06-12
--- OUTSIDE RECORDS SUMMARY | 2025-08-13 13:28 | XMS_ITS | Encounter Summary ---
Author Organization [facility] Address [address] [place] [address] Care Team Providers Care Recreational Director Name Role Phone Berta Aiken MD Primary Care Prov ider Encounter Details Date Type Department Care Team ([facility] st Contact Info) Description 08/13/2025 Results Follow-Up Adult [facility] [address] [place] [phone] Justin Harding, RN Social History Tobacco Use Types Packs/Day Years [...] care for your loved ones. For example, children's attendant or elderly care for an older adult? [...] 1:30 PM EDT Office Visit Adult Medicine [facility] [address] [place] [phone] Chano Wright PA [address] [place] [address] 09/11/2025 4:00 PM EST Office Visit Pulmonology - [place] [address] [phone] Kristen Mckeon NP [address] [place] [phone] 09/18/2025 9:15 AM EST Office Visit Orthopedic [place] [address] [phone] Andry Ruff DPM [address] [phone] 10/10/2025 10:00 AM EST Office Visit Adult Medicine [facility] [address] [place] [phone] Berta Aiken MD [address] [place] [address] 10/29/2025 10:00 AM EST Office Visit Orthopedic Surgery [place] [address] [phone] Andry Ruff DPM [address] [phone] 11/01/2025 9:45 AM EST Hospital Encounter [address] [phone] Andry Ruff DPM [address] [phone] 11/01/2025 9:45 AM EST - 11/01/2025 11:30 AM EST Surgery [address] [phone] Andry Ruff DPM [address] [phone] BUNIONECTOMY-Left [[id number] (CPT ) +2 more] 11/07/2025 9:15 AM EST Appointment Radiology Department [address] [phone] 11/14/2025 10:00 AM EST Office Visit Orthopedic Surgery - [place] [address] 175 [facility] [address] [place] [phone] Andry Ruff DPM 175 [facility] [address] [place] [phone] 01/08/2026 9:30 AM EDT Office Visit Gastroenterology [facility] 175 [facility] 175 [facility] [address] [place] [phone] Lindsay Sneed PA 175 [facility] [address] [place] [address] Scheduled Procedures Name Priority Associated Diagnoses Date/Ti me BUNIONECTOMY Acquired hallux valgus of left foot Hammer toe of left foot Metatarsalgia of left foot 11/01/2025 9:45 AM EST documented as of this encounter Visit Diagnoses Not on filedocumented in this encounter Additional Health Concerns Assessment Noted Time PHQ-9 Depression Total Score: 17 025 3:21 PM EST documented as of this encounter Care Teams Recreational Director Relationship Specialty Start Date End Date Berta Aiken MD [address] [place] [phone] PCP - General Internal Medicine 03/03/21 documented as of this encounter
--- OUTSIDE RECORDS SUMMARY | 2025-08-13 13:28 | XMS_ITS | Clinical Summary ---
Author Organization [facility] Address [address] [place] [phone] Phone Care Team Providers Care Production Troubleshooter Name Role Phone Berta Aiken MD Primary Care Prov ider Allergies Active Allergy Reactions Criticality Noted Date Comments Allerg Xt,Grass Pollen-Robert 10/06/2020 Blueberry Flavor 05/16/2015 Bluberry fruit Bupropion 05/16/2015 Hives Cat's Claw 07/11/2025 Cats in general Cattle Epithelium Allergenic Extract 10/06/2020 Cattle dander Clonidine Anaphylaxis High 08/13/2015 House Dust Mite 10/06/2020 Lactose 12/29/2023 Pt. stated that they are lactose intolerant Levofloxacin Anaphylaxis High 05/27/2016 Reaction not mentioned Mite Extract 10/06/2020 Other Swelling 04/08/2016 Tree pollen Raspberry 04/08/2016 Varenicline 05/27/2016 violent behavior / Wellbutrin/ Chantix Bupropion Hcl Other 07/09/2025 Becomes very angry - rage Medications blood-glucose meter kit Use to check blood sugar twice daily 021 Active lamoTRIgine (LaMICtal) 100 mg tablet Take 1.5 tablets (150 mg total) by mouth 1 (one) time each day. 024 Active hydrOXYzine pamoate (VISTARIL) 25 mg capsule Take 2 capsules (50 mg total) by mouth 2 (two) times a day. 023 Active clonazePAM (KlonoPIN) 1 mg tablet Take 1 tablet (1 mg total) by mouth 3 times daily as needed. Active brexpiprazole (REXULTI) 2 mg tablet Take 2 mg by mouth. Active ALPRAZolam (XANAX) 0.5 mg tablet Take 1 tablet (0.5 mg total) by mouth. Active alpha lipoic acid 600 mg capsule Take 1 capsule by mouth 1 (one) time each day. Active temazepam (RESTORIL) 30 mg capsule 1 capsule (30 mg total) at bedtime. Active SUMAtriptan (IMITREX) 100 mg tablet Take 1 tablet (100 mg total) by mouth 1 (one) time if needed. Active sertraline (ZOLOFT) 100 mg tablet Take 2 tablets (200 mg total) by mouth 1 (one) time each day. Active peg 400-propylene glycol (Lubricant Eye, PG-PEG 400,) 0.4-0.3 % drops Administer 1 drop into both eyes 2 (two) times a day. Active olopatadine (PATADAY) 0.2 % ophthalmic solution Place 1 Drop into both eyes daily as needed for Other (As needed for itching or tear). Active melatonin 3 mg tablet Take 1 tablet (3 mg total) by mouth at bedtime. Active Dairy-Aid 3,000 unit tablet TAKE 1 TABLET BY MOUTH THREE TIMES DAILY NEEDED WITH DAIRY CONTAINING MEALS. 32 tablet 3 Active acetaminophen (TYLENOL) 325 mg tablet TAKE 2 TABLETS BY MOUTH EVERY 6 HOURS NEEDED FOR PAIN OR MILD TO MODERATE PAIN. MAX OF 3000MG ACETAMINOPHEN PER DAY. 90 tablet 3 Active ipratropium-alb uteroL (DUONEB) 0.5-2.5 mg/3 mL nebulizer solutionIndicat ions:Chronic obstructive pulmonary disease, unspecified COPD type (CMS/HCC V24, CMS/HCC V28),Moderate persistent asthma without complication Take 3 mL by nebulization 4 (four) times a day if needed for wheezing or shortness of breath (and cough). 1080 mL 3 024 2024 Active fluticasone-ume clidinium-vilan terol (Trelegy Ellipta) 100-62.5-25 mcg inhaler INHALE 1 PUFF INTO THE LUNGS DAILY 1 each 11 025 2025 Active cyanocobalamin (VITAMIN B-12) 500 mcg tablet TAKE 1 TABLET BY MOUTH DAILY 90 tablet Active cholecalciferol (VITAMIN D-3) 50 mcg (2,000 unit) tablet TAKE 1 TABLET BY MOUTH DAILY 90 tablet 1 Active methocarbamoL (ROBAXIN) 750 mg tablet Take 1 tablet (750 mg total) by mouth 3 (three) times a day. 270 each 1 025 2024 Active cetirizine (ZyrTEC) 10 mg tablet TAKE 1 TABLET BY MOUTH EVERY DAY 90 tablet Active metFORMIN (GLUCOPHAGE) 1,000 mg tablet Take 1 tablet (1,000 mg total) by mouth 1 (one) time each day with breakfast. 90 tablet Active B-Complex tablet Take 1 tablet by mouth 1 (one) time each day. 90 tablet 1 025 2024 Active diclofenac (Voltaren) 1 % topical gel Apply 2 g topically 2 (two) times a day. 360 g 1 2024 Active ferrous sulfate 325 mg (65 mg elemental iron) tablet TAKE 1 TABLET BY MOUTH EVERY DAY 90 tablet 1 Active meloxicam (MOBIC) 7.5 mg tablet Take 1 tablet (7.5 mg total) by mouth 1 (one) time each day. Active Atrovent HFA 17 mcg/actuation inhaler INHALE 2 PUFFS INTO THE LUNGS TWICE DAILY 12.9 g 3 Active amitriptyline (ELAVIL) 10 mg tablet TAKE 1 TABLET BY MOUTH AT BEDTIME 90 tablet 1 Active meloxicam (MOBIC) 15 mg tablet TAKE 1 TABLET BY MOUTH DAILY 90 tablet 1 Active Ventolin HFA 90 mcg/actuation inhaler INHALE 2 PUFFS BY MOUTH EVERY 4 HOURS NEEDED FOR COUGH OR WHEEZING OR SHORTNESS OF BREATH 18 g 3 Active glucose blood test strip Use as instructed 200 strip Active freestyle (FreeStyle Lancets) 28 gauge lancets USE DIRECTED TO TEST BLOOD SUGAR TWICE DAILY 200 each Active FreeStyle Lite Meter monitoring kitIndications: Type 2 diabetes mellitus with diabetic neuropathy, without long-term current use of insulin ([facility] V24, [facility] V28),Type 2 diabetes mellitus with obesity USE DIRECTED TO MONITOR BLOOD SUGAR TWO TIMES DAILY 1 each Active glucagon (GLUCAGEN INJ) Inject as directed. Active EPINEPHrine (EpiPen 2-Benson) 0.3 mg/0.3 mL injection Inject 0.3 mL (0.3 mg total) into the thigh if needed for anaphylaxis. 2 each Active gabapentin (NEURONTIN) 600 mg tablet TAKE 1 TABLET BY MOUTH THREE TIMES DAILY 270 tablet 1 Active gabapentin (NEURONTIN) 300 mg capsule Take 1 capsule (300 mg total) by mouth 3 (three) times a day. 90 capsule Active lisinopriL (PRINIVIL,ZESTR IL) 5 mg tablet Take 1 tablet (5 mg total) by mouth 1 (one) time each day. 30 each 5 025 2025 Active azelastine (ASTELIN) 137 mcg (0.1 %) nasal sprayIndication s:Perennial allergic rhinitis Administer 2 sprays into each nostril 2 (two) times a day. Use in each nostril as directed 30 mL Active traMADoL (ULTRAM) 50 mg tabletIndicatio ns:Arthritis of knee, left TAKE 1 TABLET(50 MG) BY MOUTH EVERY 6 HOURS FOR UP TO 10 DAYS NEEDED FOR SEVERE PAIN. MAX DAILY AMOUNT: 200 MG 30 tablet Active famotidine (PEPCID) 20 mg tablet TAKE 1 TABLET BY MOUTH TWICE DAILY 180 tablet 1 Active mupirocin (BACTROBAN) 2 % creamIndication s:Umbilical pain Apply topically 3 (three) times a day for 10 days. 15 g 025 2024 Active fluticasone propionate (FLONASE) 50 mcg/actuation nasal sprayIndication s:Chronic rhinitis SHAKE LIQUID AND USE 2 SPRAYS IN EACH NOSTRIL DAILY 16 g 11 Active fluticasone propionate (FLONASE) 50 mcg/actuation nasal spray 2 Sprays by Each Nare route daily. 024 2024 Discontinued azelastine (ASTELIN) 137 mcg (0.1 %) nasal sprayIndication s:Perennial allergic rhinitis USE 2 SPRAYS IN EACH NOSTRIL TWICE DAILY DIRECTED 30 mL 11 024 2024 Discontinued(R eorder) famotidine (PEPCID) 20 mg tablet Take 1 tablet (20 mg total) by mouth 2 (two) times a day. 180 tablet 1 2024 Discontinued gabapentin (NEURONTIN) 600 mg tablet TAKE 1 TABLET BY MOUTH THREE TIMES DAILY 90 tablet 5 025 2024 Discontinued atorvastatin (LIPITOR) 20 mg tablet TAKE 1 TABLET BY MOUTH DAILY 90 tablet 1 2024 Discontinued(F ormulary change) lisinopriL (PRINIVIL,ZESTR IL) 10 mg tablet TAKE 1 TABLET BY MOUTH DAILY 90 tablet 1 025 2024 Discontinued(R eorder) tirzepatide, weight loss, (Zepbound) 2.5 mg/0.5 mL injection Inject 0.5 mL (2.5 mg total) under the skin every 7 (seven) days. 2 mL 025 2024 Discontinued(T herapy completed) gabapentin (NEURONTIN) 300 mg capsule TAKE 3 CAPSULES BY MOUTH THREE TIMES DAILY 90 capsule 025 2024 Discontinued(R eorder) traMADoL (ULTRAM) 50 mg tabletIndicatio ns:Arthritis of knee, left TAKE 1 TABLET(50 MG) BY MOUTH EVERY 6 HOURS FOR UP TO 10 DAYS NEEDED FOR SEVERE PAIN. MAX DAILY AMOUNT: 200 MG 30 tablet 025 2024 Discontinued EPINEPHrine (EpiPen 2-Benson) 0.3 mg/0.3 mL injection Inject 0.6 mL (0.6 mg total) into the thigh if needed for anaphylaxis. 1 each 025 2024 Discontinued(R eorder) tirzepatide, weight loss, (Zepbound) 2.5 mg/0.5 mL solutionIndicat ions:Type 2 diabetes mellitus with diabetic neuropathy, with long-term current use of insulin ([facility] V24, [facility] V28) Inject 2.5 mg under the skin every 7 (seven) days. 2 mL 1 025 2024 Active Problems Problem Noted Date Diagnosed Date Fainting 07/23/2025 Multiple allergies 06/28/2025 Acquired hallux valgus of left foot 05/08/2025 Hammer toe of left foot 05/08/2025 Metatarsalgia of left foot 05/08/2025 Cerebrovascular accident (CVA) ([facility] V24, [facility] V28) 04/03/2025 Bipolar disorder ([facility] V24, [facility] V28) 01/2025 Chronic obstructive pulmonar y disease ([facility] V24, [facility] V28) 04/03/2025 Diabetes mellitus ([facility] V24, [facility] V28) 01/2025 Diabetes mellitus with neuro jamey ([facility] V24, [facility] V28) 04/03/2025 B12 deficiency 04/03/2025 Urinary incontinence 04/03/2025 Moderate persistent asthma without complication 02/15/2025 Overweight (BMI 25.0-29.9) 02/15/2025 Microalbuminuria 12/20/2024 Hypertension 09/18/2024 Knee stiffness, left 03/22/2024 Status post total left knee replacement 01/17/20 24 History of knee replacement 12/28/2023 HAL (obstructive sleep apnea) 08/22/2023 Overview (07/30/2024): [facility] Home Sleep Apnea Test: Date08/25/2023 ; BMI 28.4 ; AHI 51; average oxygen saturation 92% (lowest 69 with saturations <88% for 5% or more of study) - Obstructive Sleep Apnea - severe; with sleep related hypoventilation by 2022 home sleep apnea test. [facility] Polysomnogram treatment study. Date 11/11/2019. Wt 250#; BMI 35; SE 58 % SM 64 %; spent 13 % of the study in REM. On BiPAP @ / (for entire study); RDI 0.2 (AHI 0.2), Central apneas 0; Obstructive apneas 0; Mixed apneas 0; hypopneas 1; RERAs 0; and, average oxygen saturation was 93%. For the entire study, PLMs ~10. Prestudy ESS 11; 2/4 RLS symptoms. Last Assessment & Plan: Patient states that she has symptoms of sleep apnea and she needs the machine. Ririe scale 16. New polysomnogram has been ordered. Throat cancer ([facility] V24, [facility] V28) 023 Overview (04/03/2025): Pt will initiate tx after foot surgery S/P insertion of spinal cord stimulator 04/05/20 23 Esophageal dysmotility 12/16/2022 Moderate episode of recurren t major depressive disorder ([facility] V24, [facility] V28) 12/16/2022 Abnormal TSH 12/15/2022 Multinodular goiter 12/15/2022 Multiple thyroid nodules 12/15/2022 CKD (chronic kidney disease) 09/07/2022 Cigarette smoker 03/05/2021 Overview (07/30/2024): Last Assessment & Plan: Referral to lung cancer screening program. Patient benefits of including her in the lung cancer screening were discussed. Multiple decision accepted. Neuroforaminal stenosis of cervical spine 2020 Chronic pain of left knee 02/05/2021 History of cocaine abuse ([facility] V24, [facility] V 28) 02/05/2021 COVID-19 virus infection 10/25/2020 [...] 2 diabetes mellitus wit h diabetic neuropathy ([facility] V24, [facility] V28) 11/23/2016 Toenail fungus 06/29/2016 Abnormal MRI [...] were clear. Colon polyps 12/01/2015 Overview (07/30/2024): [place] doen 12/2019- due 12/2022 Urinary and fecal incontinence 06/09/2015 Agoraphobia 05/16/2015 Anxiety 05/16/2015 Bipolar 1 disorder ([facility] V24, [facility] V28) COPD (chronic obstructive pu lmonary disease) ([facility] V24, [facility] V28) 05/16/2015 Overview (07/30/2024): Last Assessment & [...] reflux disease) 5 History of substance abuse ([facility] V24, [facility] V28) 05/16/2015 Hyperlipidemia 05/16/2015 Migraines 05/16/2015 PTSD (post-traumatic stress disorder) 05/16/2015 Vitamin B12 deficiency 05/16/2015 Vitamin D deficiency 05/16/2015 Iron deficiency 05/16/2015 Encounters Date Type Department Care Team Description 08/13/2025 Telephone Adult [facility] [address] [place] [phone] Marissa Haider [place] 08/13/2025 Results Follow-Up Adult [address] [phone] Justin Harding RN 08/08/2025 7:12 AM EDT - 08/08/2025 11:59 PM EDT Hospital Encounter [facility] Ultrasound [address] [place] [phone] Umbilical pain Discharge Disposition: Home or Self Care 08/07/2025 10:36 AM EDT - 08/07/2025 11:59 PM EDT Hospital Encounter [facility] CT Scan [address] [place] [phone] Personal history of nicotine dependence; Encounter for screening for malignant neoplasm of respiratory organs Discharge Disposition: Home or Self Care 08/05/2025 8:45 AM EDT Office Visit Orthopedic Surgery [facility] [address] [facility] [address] [place] [phone] Andry Ruff, DPM Metatarsalgia of left foot (Primary Dx); Hammer toe of left foot; Acquired hallux valgus of left foot 08/05/2025 Results Follow-Up Adult [facility] [address] [place] [phone] Chano Wright PA 08/05/2025 Telephone Adult [facility] [address] [place] [phone] Berta Aiken MD 08/02/2025 2:45 PM EDT Office Visit Adult [facility] [address] [place] [address] Chano Wright PA Umbilical pain (Primary Dx); Abnormal MRI; Memory problem; Overweight (BMI 25.0-29.9) 08/02/2025 Telephone Adult [facility] [address] [place] [address] Berta Aiken MD 07/31/20[address] [address] Brian Perez, [place] 07/29/2025 Telephone Adult [facility] [address], [place] [phone] VitalyMarissaKAPOLEI, [place] 07/23/2025 2:00 PM EDT Office Visit [facility] [address], [place] [phone] Berta Aiken MD Dehydration (Primary Dx); Muscle ache; Iron deficiency anemia, unspecified iron deficiency anemia type; Perennial allergic rhinitis; Low blood sugar; Bipolar 1 disorder ([facility] V24, [facility] V28) 07/22/2025 Telephone Adult [facility] [address] [place] [address] Berta Aiken MD 07/17/2025 Telephone Lung Screening Program - [place] [address] [facility] [address] [place] [phone] Demarcus Brunner MD 07/11/2025 10:00 AM EDT Consult [facility] [address] [place] [address] Breta Aiken MD Type 2 diabetes mellitus with diabetic neuropathy, with long-term current use of insulin ([facility] V24, [facility] V28) 07/09/2025 9:50 AM EDT Office Visit Gastroenterology - [place] 175 [facility] 175 [facility] [address] [place] [phone] Lindsay Sneed PA Oral phase dysphagia (Primary Dx) 07/09/2025 Telephone Gastroenterology - [place] [address] 175 [facility] [address] [place] [phone] Lindsay Sneed PA 06/28/2025 1:00 PM EDT Office Visit Adult [facility] [address] [place] [phone] Chano Wright PA Type 2 diabetes mellitus with diabetic neuropathy, without long-term current use of insulin ([facility] V24, [facility] V28) (Primary Dx); Injury of left foot, initial encounter; Arthritis of knee, left; Multiple allergies 06/28/2025 Telephone Adult [facility] [address] [place] [address] Chano Wright PA 06/28/2025 Telephone Adult [facility] [address] [place] [address] Berta Aiken MD 06/25/2025 Telephone Orthopedic Surgery [facility] [address] [facility] [address] [place] [phone] Andry Ruff, DPM 06/17/2025 Telephone Adult [facility] [address] [place] [address] Berta Aiken MD 06/12/2025 2:30 PM EDT Office Visit Adult [facility] [address] [place], [place] [phone] Berta Aiken MD Pedal edema (Primary Dx); Obesity (BMI 30.0-34.9); Type 2 diabetes mellitus with diabetic neuropathy, with long-term current use of insulin (CMS/HCC V24, [facility] V28); Hyperkalemia; Dementia with mood disturbance, unspecified dementia severity, unspecified dementia type (CMS/HCC V24, CMS/[facility] V28) 06/12/2025 Telephone Adult [facility] [address] [place], [place] [phone] Berta Aiken MD 06/12/2025 Telephone Orthopedic Surgery [facility] [address] [phone] Andry Ruff DPM 06/10/2025 8:30 AM EDT Treatment [facility] [address] [phone] Deanna Mcdowell, PT Left hip pain (Primary Dx) 06/10/2025 Telephone Adult [facility] [address] [place] [address] Berta Aiken MD 06/10/2025 Telephone Orthopedic Surgery [place] [address] [phone] Andry Ruff DPM 06/04/2025 Telephone [facility] [address] [phone] Deanna Mcdowell, PT 06/03/2025 8:30 AM EDT Office Visit [facility] Surgery [place] [address] [phone] Andry Ruff DPM Metatarsalgia of left foot (Primary Dx); Acquired hallux valgus of left foot; Hammer toe of left foot; Contusion of left foot, initial encounter 05/24/2025 Telephone [facility] [address] [place] [address] Berta Aiken MD 05/21/2025 3:30 PM EDT Office Visit Orthopedic Surgery [place] [address] [phone] Andry Ruff DPM Cellulitis of fifth toe of left foot (Primary Dx); Metatarsalgia of left foot; Acquired hallux valgus of left foot; Hammer toe of left foot 05/21/2025 2:00 PM EDT Office Visit [facility] [address] [place] [address] Chano Wright PA Type 2 diabetes mellitus with obesity ([facility] V24, [facility] V28) (Primary Dx); Multiple thyroid nodules; Obesity, Class I, BMI 30.0-34.9 (see actual BMI); Intention tremor; Esophageal dysmotility 05/21/2025 Telephone Adult [facility] [address] [place] [phone] Chano Wright PA 05/17/2025 10:35 AM EDT Office Visit Pulmonology - [place] 175 [facility] [address] [place] [phone] Kristen Mckeon NP Chronic obstructive pulmonary disease, unspecified COPD type ([facility] V24, [facility] V28) (Primary Dx); Moderate persistent asthma without complication; HAL (obstructive sleep apnea); Obesity (BMI 30.0-34.9) 05/17/2025 Telephone Adult [facility] [address] [place] [phone] Berta Aiken MD 05/16/2025 Telephone [facility] - [place] [address] [facility] [address] [place] [address] Andry Ruff DPM 05/15/2025 10:00 AM EDT Evaluation [facility] [place] 175 [facility] [address] [place] [address] Deanna Mcdowell, PT Left hip pain from Last 3 Months Immunizations Immunization Administration Dates Next Due COVID-19 (Moderna/Spikevax) 12yo and older 08/10/2023 Influenza Quadravalent, MDCK , 0.5ml, preservative free (Flucelvax) 6mo and older 07/15/2022,09/07/2021 Influenza Quadravalent, MDCK , 0.5ml, with preservative (Flucelvax) 6mo and older 07/13/2017 Influenza Quadrivalent, 0.5m l, preservative free (Fluarix; FluLaval; Fluzone) ages 6mo and older (Afluria) 3yo and older 08/16/2018,07/11/2014 Influenza Quadrivalent, with preservative (Fluzone; Afluria) 6mo and older 08/10/2019 Influenza trivalent, 0.5mL, preservative free (Fluarix; FluLaval; Fluzone) ages 6mo and older (Afluria) 3 years and older 08/22/2024 Influenza trivalent, MDCK, 0 .5mL, preservative free (Flucelvax) 6mo and older 07/08/2025 Influenza trivalent, with pr eservative (Fluzone; Afluria) 6mo and older 07/31/2020,08/16/2018,08/31/2016,10/07 Moderna Covid-19 Bivalent, O riginal + Ba.1 (Non-US Tradename Spikevax Bivalent) 09/27/2021,03/23/2021,02/20/2021 Moderna SARS-CoV-2 COVID-19, mRNA, LNP-S, preservative free 09/29/2021,03/23/2021,02/21/2021,02/20 Pneumococcal conjugate 21 va lent (CAPVAXIVE, PCV 21) 19yo and older 07/09/2025 Pneumococcal polysaccharide 23 valent (Pneumovax 23) 2yo and older 12/04/2016,12/01/2015 RSV, bivalent, protein subun it RSVpreF, 0.5mL, Preservative Free (ABRYSVO) 50yo and older or 32 through 36 wks of 07/09/2025 Tdap Tetanus diptheria acell ular pertussis (Boostrix; Adacel) 7yo and older 11/16/2023,12/01/2015 Zoster recombinant (Shingrix ) 19yo and older 03/10/2018 Surgical History Surgery Date Site/Laterality Comments KNEE ARTHROSCOPY 1994 Left PROCEDURE: [place] ARTHROSCOPY AID TX SPINE&/FX KNEE W/O FIXJ OTHER SURGICAL HISTORY 2002 PROCEDURE: [place] TOTAL ABDOMINAL HYSTERECT W/WO RMVL TUBE OVARY; COMMENT: ovarian and cervical cancer HERNIA REPAIR 02/2015 Right PROCEDURE: HISTORICAL HERNIA REPAIR/ING COLONOSCOPY 08/2015 PROCEDURE: HISTORICAL COLONOSCOPY; COMMENT: done at [facility], three tubular adenomas removed, no evidence of microscopic colitis OTHER SURGICAL HISTORY 04/21/2016 PROCEDURE: ---- OTHER ----; COMMENT: da Fabiola Trachelectomy (removal of cervix) performed by Dr. Moyer BLADDER SURGERY PROCEDURE: HISTORICAL BLADDER SURGERY BREAST BIOPSY 17 yrs. ago Right PROCEDURE: BX BREAST; PERC NEEDLE CORE W/IMAG GUID; COMMENT: rt. breast bx-ca BREAST SURGERY yrs ago Right PROCEDURE: [place] UNLISTED PROCEDURE BREAST; COMMENT: lumpectomy COLONOSCOPY 01/22/2020 PROCEDURE: HISTORICAL COLONOSCOPY; COMMENT: polyps OTHER SURGICAL HISTORY 01/07/2023 PROCEDURE: HISTORY OTHER; COMMENT: Spinal cord stimulator, [facility], BREAST LUMPECTOMY R FOOT SURGERY Right KNEE ARTHROPLASTY LEFT Medical History Medical History Date Comments History of CVA (cerebrovascu lar accident) without residual deficits 2010 and 2011 DX:History of CVA (cerebrovascular accident) without residual deficits Iron deficiency 05/16/2015 DX:Iron deficien cy Vitamin B12 deficiency 05/16/2015 DX:Vitami n B12 deficiency Vitamin D deficiency 05/16/2015 DX:Vitamin D deficiency History of seizure 05/16/2015 DX:History of seizure; COMMENT: 2013 COPD (chronic obstructive pu lmonary disease) ([facility] V24, [facility] V28) 05/16/2015 DX:COPD (chronic o bstructive pulmonary disease) ([facility]) Migraines 05/16/2015 DX:Migraines Hyperlipidemia 05/16/2015 DX:Hyperlipidemi a Anxiety 05/16/2015 DX:Anxiety Depression 05/16/2015 DX:Depression Bipolar 1 disorder ([facility] V24, [facility] V28) 05/16/2015 DX:Bipolar 1 disorder ([facility]) PTSD (post-traumatic stress disorder) 05/16/2015 DX:PTSD (post-traumatic stre ss disorder) Agoraphobia 05/16/2015 DX:Agoraphobia History of substance abuse ( [facility] V24, [facility] V28) 05/16/2015 DX:History of substance abus e ([facility]) Diabetes mellitus ([facility] V 24, [facility] V28) 05/16/2015 DX:Diabetes mellitus ([facility] MILL) Colon polyps 12/01/2015 DX:Colon polyps Papanicolaou smear of cervix with high grade squamous intraepithelial lesion (HGSIL) 01/26/2016 DX:Papanicolaou smear of cer vix with high grade squamous intraepithelial lesion (HGSIL) HAL (obstructive sleep apnea) 05/27/2016 DX :HAL (obstructive sleep apnea) History of breast cancer 05/27/2016 DX:Hist ory of breast cancer; COMMENT: Right 1998 / lumpectomy Abnormal MRI 06/01/2016 DX:Abnormal MRI; COMMENT: 1.5 cm left adrenal gland nodule 2012 / further MRI recommended / no further testing seen in transfer notes Type 2 diabetes mellitus wit h diabetic neuropathy ([facility] V24, [facility] V28) 11/23/2016 DX:Type 2 diabetes mellitus with diabetic neuropathy (HCC) History of ovarian cancer 05/16/2015 DX:His tory of ovarian cancer; COMMENT: uterine 2002 and ovarian cancer 2014 Asthma DX:Asthma HL (hearing loss) Dysphagia Cystic thyroid nodule THROAT Dental disease Seizures ([facility] V24, [facility] V28) Stroke ([facility] V24, [facility] V28) Joint pain MULTIPLE SITES Arthritis GERD (gastroesophageal reflu x disease) Cancer ([facility] V24, [facility] V28) BREAST, CERVIX,OVARYS Family History Medical History Relation Name Comments Other: breast cancer Aunt bilater al breast ca dx > age 50; paternal aunt Brain cancer Father also lung cance r, 56 Stroke Father Other: no information Maternal Grandfather Other: ovarian cancer Maternal Grandmother at age 49; ? age at dx Alzheimer's disease Mother COPD Mother Lung cancer Mother age 69 Throat cancer Other 1 maternal first cousin -nonsmoker Other: lung cancer Other 2 maternal first mfpior-aviefnibb-nrjw age 31 Brain cancer Other 3 paternal first cousin- age 33 Other: no information Paternal Grandfather Other: no information Paternal Grandmother Other: Barretts Son Heart attack Neg Hx Relation Name Status Comments Aunt Brother Father (Age 56) Brain and lung cancer Maternal Grandfather Maternal Grandmother Mother (Age 69) Lung cance r Other 1 Alive Other 2 Other 3 Paternal Grandfather Paternal Grandmother Sister 1 Alive Sister 2 Alive Son Alive Social History Tobacco Use Types Packs/Day Years Used Date Smoking Tobacco: Former Smokeless Tobacco: Never Tobacco Cessation:Counseling Given: Not [...] for your loved ones. For example, child development consultant or elderly care for an older adult? [...] Orientation Straight 09/14/2024 9: 18 AM EST Obstetrics History Para Term AB IAB SAB Ectopic Multiple Livin g Live Births 1 1 1 1 Date Outcome GA Total Labor Labor/2nd/3rd Weight Sex Type Anes PTL Kitty A1 A5 Name Clin Term Last Filed Vital Signs Vital Sign Reading Time Taken Comments Blood Pressure 105/65 08/02/2025 2:50 PM EDT Pulse 65 08/02/2025 2:50 PM EDT Temperature 36.2 C (97.2 F) 08/02/2025 2:50 PM EDT Respiratory Rate 16 05/17/2025 10:13 AM EDT Oxygen Saturation 95% 07/23/2025 2:18 PM EDT Inhaled Oxygen Concentration - - Weight 98.4 kg (217 lb) 08/02/2025 2:50 PM EDT Height 182.9 cm (6') 08/02/2025 2:50 PM EDT Body Mass Index 29.43 08/02/2025 2:50 PM EDT Plan of Treatment Upcoming Encounters Date Type Department Care Team (Late st Contact Info) Description 08/30/2025 1:30 PM EDT Office Visit Adult Medicine - [place] [address] [place] [phone] Chano Wright PA [address] [place] [address] 09/11/2025 4:00 PM EST Office Visit Pulmonology - [place] 175 [facility] [address] [place] [phone] Kristen Mckeon NP [address] [place] [phone] 09/18/2025 9:15 AM EST Office Visit Orthopedic Surgery - [place] [address] 175 [facility] [address] [place] [phone] Andry Ruff DPAshlee 175 [facility] [address] [place] [phone] 10/10/2025 10:00 AM EST Office Visit Adult Medicine - [place] [address] [place] [phone] Berta Aiken MD [address] [place] [address] 10/29/2025 10:00 AM EST Office Visit Orthopedic Surgery [place] [address] [phone] Andry Ruff DPAshlee [address] [phone] 11/01/2025 9:45 AM EST Hospital Encounter [facility] [address] [place] [phone] Andry Ruff DPM [address] [phone] 11/01/2025 9:45 AM EST - 11/01/2025 11:30 AM EST Surgery [address] [phone] Andry Ruff, WALTM [address] [phone] BUNIONECTOMY-Left [[id number] (CPT ) +2 more] 11/07/2025 9:15 AM EST Appointment Radiology Department [address] [phone] 11/14/2025 10:00 AM EST Office Visit Orthopedic Surgery [place] [address] [phone] Andry Ruff, DPM [address] [phone] 01/08/2026 9:30 AM EDT Office Visit Gastroenterology - [place] [address] [place] [phone] Lindsay Sneed PA [address] [place] [address] [place] [address] Scheduled Procedures Name Priority Associated Diagnoses Date/Ti me BUNIONECTOMY Acquired hallux valgus of left foot Hammer toe of left foot Metatarsalgia of left foot 11/01/2025 9:45 AM EST Health Maintenance Due Date Last Done Comments Hepatitis B Vaccines (1 of 3 - 19+ 3-dose series) 1986 Zoster Vaccines (2 of 2) 05/05/2018 03/10/2018 HIV Screening 10/09/2022 Hepatitis C Screening 10/09/2022 Medicare Annual Wellness Visit 10/09/2022 Diabetes: Annual Foot Exam 09/07/2024 09/07/2023 Diabetes: Annual Retina Eye Exam 03/21/2025 03/21/2024 COVID-19 Vaccine (10 - Moderna risk season) 2025 08/22/2024, 08/10/2023, 09/29/2021, Additional history exists Diabetes: Blood Sugar Control Test (HGBA1C) 11/21/2025 05/21/2025, 12/20/2024, 09/20/2024, Additional history exists Diabetes: Annual Urine Albumin-Creatinine Ratio (uACR) 12/20/2025 12/20/2024, 01/26/2024 Social Influencers of Health Screening 12/27/2025 12/27/2024 Diabetes: Annual GFR (Glomerular Filtration Rate) 06/12/2026 06/12/2025, 12/20/2024, 09/20/2024, Additional history exists Hypertension/CHF/CAD Annual BMP Blood Test 06/12/2026 06/12/2025, 12/20/2024, 09/20/2024, Additional history exists Breast Cancer Screening 10/13/2026 10/13/20 24, 09/10/2023, 09/09/2022, Additional history exists Colorectal Cancer Screening: Colonoscopy 04/21/2028 04/21/2023 Cholesterol Screening (Lipid Panel) 05/21/2030 05/21/2025, 12/20/2024, 01/17/2024 DTaP,Tdap,and Td Vaccines (3 - Td or Tdap) 11/16/2033 11/16/2023, 12/01/2015 Depression Screening Completed 12/19/2024, 06/05/20 21 Influenza Vaccine Completed 07/08/2025, , 08/31/2023, Additional history exists Pneumococcal Vaccine: 50+ Years Completed 07/09/2025, 12/04/2016, 12/01/2015 RSV Immunization Adult Patients Completed 07/09/2025 HIB Vaccines Aged Out No longer eligi ble based on patient's age to complete this topic HPV Vaccines Aged Out No longer eligi ble based on patient's age to complete this topic Hepatitis A Vaccines Aged Out No long er eligible based on patient's age to complete this topic IPV Vaccines Aged Out No longer eligi ble based on patient's age to complete this topic MMR Vaccines Aged Out No longer eligi ble based on patient's age to complete this topic Meningococcal ACWY Vaccine Aged Out N o longer eligible based on patient's age to complete this topic Meningococcal B Vaccine Aged Out No l onger eligible based on patient's age to complete this topic RSV Immunization Patients Under 20 months Aged Out No longer eligible based on patient's age to complete this topic Varicella Vaccines Aged Out No longer eligible based on patient's age to complete this topic Procedures Procedure Name Priority Date/Time Associated Diagnosis Comments US ABDOMEN LIMITED Routine 08/08/2025 7: 43 AM EDT Umbilical pain CBC WITH AUTO DIFFERENTIAL Routine 08/02/2025 3:19 PM EDT Umbilical pain CBC AND DIFFERENTIAL Routine 08/02/2025 3:19 PM EDT Umbilical pain CREATINE KINASE Routine 08/02/2025 3:19 PM EDT Elevated CPK CBC WITH AUTO DIFFERENTIAL Routine 07/23/2025 3:09 PM EDT Iron deficiency anemia, unspecified iron deficiency anemia type CREATINE KINASE Routine 07/23/2025 3:09 PM EDT Muscle ache IRON AND TIBC Routine 07/23/2025 3:09 PM EDT Iron deficiency anemia, unspecified iron deficiency anemia type CBC AND DIFFERENTIAL Routine 07/23/2025 3:09 PM EDT Iron deficiency anemia, unspecified iron deficiency anemia type COMPREHENSIVE METABOLIC PANEL Routine 06/12/2025 2:59 PM EDT Hyperkalemia LIPID PANEL WITH REFLEX TO DIRECT LDL Routine 05/21/2025 1:40 PM EDT Hyperlipidemia, unspecified hyperlipidemia type HEMOGLOBIN A1C Routine 05/21/2025 1:40 PM EDT Type 2 diabetes mellitus with diabetic neuropathy, without long-term current use of insulin (CMS/HCC V24, CMS/HCC V28) MICROALBUMIN CREATININE URINE RATIO Routine 12/20/2024 9:37 AM EST Type 2 diabetes mellitus with diabetic neuropathy, without long-term current use of insulin (CMS/HCC V24, CMS/HCC V28) MG MAMMO DIGITAL SCREENING W CURTIS BILAT Routine 10/13/2024 1:49 PM EST Encounter for screening mammogram for breast cancer DIABETES EYE EXAM Routine 03/21/2024 DIABETES FOOT EXAM Routine 09/07/2023 COLONOSCOPY Routine 04/21/2023 DEPRESSION SCREENING Routine 06/05/2021 from Last 3 Months or Most Recently Relevant to Health Maintenance Results * US Abdomen Limited (08/08/2025 7:43 [...] Signed Date: 08/12/2025 16:55 ET Workstation ID: [id number] Transcribed By: Self Edit Transcribed Date: 08/12/2025 [...] Signed Date: 08/12/2025 16:55 ET Workstation ID: [id number] Transcribed By: Self Edit Transcribed Date: 08/12/2025 16:53 ET Chano TORRES [facility] US PROCEDURES Final Result * (ABNORMAL) CBC auto differential (08/02/2025 3:19 PM EDT) Only the most recent of2 resultswithin the time period is included. [facility] WBC 7.0 4.8 - 10.8 K/mcL LAB HEMETOLOGY METHOD 08/02/2025 5:52 PM EDT [facility] RBC 4.30 3.80 - 4.80 M/mcL LAB HEMETOLOGY METHOD 08/02/2025 5:52 PM EDT [facility] Hemoglobin 13.0 11.5 - 16.0 g/dL LAB HEMETOLOGY METHOD 08/02/2025 5:52 PM EDT [facility] Hematocrit 40.7 35.0 - 47.0 % LAB HEMETOLOGY METHOD 08/02/2025 5:52 PM EDT [facility] MCV 94.0 79.0 - 98.0 FL LAB HEMETOLOGY METHOD 08/02/2025 5:52 PM EDT [facility] MCH 30.0 27.0 - 32.0 pcg LAB HEMETOLOGY METHOD 08/02/2025 5:52 PM EDT [facility] MCHC 31.9(L) 32.0 - 37.0 g/dL LAB HEMETOLOGY METHOD 08/02/2025 5:52 PM EDT [facility] RDW 12.6 11.0 - 15.0 % LAB HEMETOLOGY METHOD 08/02/2025 5:52 PM EDT [facility] Platelets 261 130 - 400 K/mcL LAB HEMETOLOGY METHOD 08/02/2025 5:52 PM EDT [facility] MPV 10.1 7.0 - 11.0 FL LAB HEMETOLOGY METHOD 08/02/2025 5:52 PM EDT [facility] NRBC 0.0 <1.0 % LAB HEMETOLOGY METHOD 08/02/2025 5:52 PM EDT [facility] NRBC Absolute 0.00 <0.10 K/mcL LAB HEMETOLOGY METHOD 08/02/2025 5:52 PM EDT [facility] Neutrophils Relative 62.9 % LAB HEMETOLOGY METHOD 08/02/2025 5:52 PM EDT [facility] Lymphocytes Relative 25.1 % LAB HEMETOLOGY METHOD 08/02/2025 5:52 PM EDT [facility] Monocytes Relative 6.7 % LAB HEMETOLOGY METHOD 08/02/2025 5:52 PM EDT [facility] Eosinophils Relative 4.5 % LAB HEMETOLOGY METHOD 08/02/2025 5:52 PM EDT [facility] Basophils Relative 0.7 % LAB HEMETOLOGY METHOD 08/02/2025 5:52 PM EDT [facility] Immature Granulocytes Relative 0.1 % LAB HEMETOLOGY METHOD 08/02/2025 5:52 PM EDT [facility] Neutrophils Absolute 4.42 1.50 - 7.00 K/mcL LAB HEMETOLOGY METHOD 08/02/2025 5:52 PM EDT [facility] Lymphocytes Absolute 1.77 1.00 - 5.00 K/mcL LAB HEMETOLOGY METHOD 08/02/2025 5:52 PM EDT [facility] Monocytes Absolute 0.47 0.20 - 1.00 K/mcL LAB HEMETOLOGY METHOD 08/02/2025 5:52 PM EDT [facility] Eosinophils Absolute 0.32 0.00 - 0.50 K/mcL LAB HEMETOLOGY METHOD 08/02/2025 5:52 PM EDT [facility] Basophils Absolute 0.05 0.00 - 0.20 K/mcL LAB HEMETOLOGY METHOD 08/02/2025 5:52 PM EDT [facility] Immature Granulocytes Absolute 0.01 0.00 - 0.03 K/mcL LAB HEMETOLOGY METHOD 08/02/2025 5:52 PM EDT [facility] Blood Venous blood specimen / Unknown Venipuncture / Unknown 08/02/2025 3:19 PM EDT 08/02/2025 3:19 PM EDT Chano TORRES LAB BLOOD ORDERABLES Final Res ult Performing Organization Address [facility] Co de Phone Number [facility] [address] [place] [address], [place] [phone] * Creatine kinase (08/02/2025 3:19 PM EDT) Only the most recent of2 resultswithin the time period is included. Total CK 114 22 - 269 unit/L LAB CHEMISTRY METHOD 08/02/2025 6:08 PM EDT [facility] Blood Venous blood specimen / Unknown Venipuncture / Unknown 08/02/2025 3:19 PM EDT 08/02/2025 3:19 PM EDT Berta Aiken MD LAB BLOOD ORDERABL ES Final Result Performing Organization Address [facility]/ZIP Co de Phone Number [facility] [address] [place] [address], [place] [phone] * Iron and TIBC (07/23/2025 3:09 PM EDT) Iron 73 40 - 150 mcg/dL LAB CHEMISTRY METHOD 07/23/2025 7:20 PM EDT [facility] TIBC 294 250 - 450 mcg/dL LAB CHEMISTRY METHOD 07/23/2025 7:20 PM EDT [facility] Iron Saturation 25 15 - 50 % LAB CHEMISTRY METHOD 07/23/2025 7:20 PM [facility] Blood Venous blood specimen / Unknown Venipuncture / Unknown 07/23/2025 3:09 PM EDT 07/23/2025 3:09 PM EDT us Berta Aiken MD LAB BLOOD ORDERABL ES Final Result [facility] [address] [place] [address], * (ABNORMAL) Comprehensive metabolic panel (06/12/2025 2:59 PM EDT) Sodium 138 133 - 145 mmol/L LAB CHEMISTRY METHOD 06/12/2025 6:37 PM [facility] Potassium 4.7 3.5 - 5.5 mmol/L LAB CHEMISTRY METHOD 06/12/2025 6:37 PM [facility] Chloride 108 96 - 110 mmol/L LAB CHEMISTRY METHOD 06/12/2025 6:37 PM [facility] CO2 24 21 - 32 mmol/L LAB CHEMISTRY METHOD 06/12/2025 6:37 PM [facility] Anion Gap 6 3 - 11 LAB CHEMISTRY METHOD 06/12/2025 6:37 PM [facility] Glucose 108(H) 70 - 100 mg/dL LAB CHEMISTRY METHOD 06/12/2025 6:37 PM [facility] BUN 21 5 - 25 mg/dL LAB CHEMISTRY METHOD 06/12/2025 6:37 PM [facility] Creatinine 1.07 0.50 - 1.10 mg/dL LAB CHEMISTRY METHOD 06/12/2025 6:37 PM [facility] eGFR 61 >=60 mL/min/1. 73m2 LAB CHEMISTRY METHOD 06/12/2025 6:37 PM [facility] Comment:Calculation based on the Chronic Kidney Disease Epidemiology Collaboration (CKD-EPI) equation refit without adjustment for race. BUN/Creatinine Ratio 19.6 LAB CHEMISTRY METHOD 06/12/2025 6:37 PM EDT [facility] Calcium 9.4 8.5 - 10.5 mg/dL LAB CHEMISTRY METHOD 06/12/2025 6:37 PM [facility] AST (SGOT) 18 10 - 42 unit/L LAB CHEMISTRY METHOD 06/12/2025 6:37 PM [facility] ALT (SGPT) 14 10 - 60 unit/L LAB CHEMISTRY METHOD 06/12/2025 6:37 PM [facility] Alkaline Phosphatase 88 42 - 121 unit/L LAB CHEMISTRY METHOD 06/12/2025 6:37 PM [facility] Total Protein 7.1 6.0 - 8.0 g/dL LAB CHEMISTRY METHOD 06/12/2025 6:37 PM [facility] Albumin 4.4 3.2 - 5.0 g/dL LAB CHEMISTRY METHOD 06/12/2025 6:37 PM [facility] Total Bilirubin 0.4 0.0 - 1.4 mg/dL LAB CHEMISTRY METHOD 06/12/2025 6:37 PM [facility] Blood Venous blood specimen / Unknown Venipuncture / Unknown 06/12/2025 2:59 PM EDT 06/12/2025 2:59 PM EDT us Berta Aiken MD LAB BLOOD ORDERABL ES Final Result [facility] [address] [place] [address], * Lipid panel with reflex to direct LDL (05/21/2025 1:40 PM EDT) Cholesterol 178 0 - 200 mg/dL LAB CHEMISTRY METHOD 05/21/2025 7:57 PM EDT [facility] Triglycerides 143 0 - 150 mg/dL LAB CHEMISTRY METHOD 05/21/2025 7:57 PM EDT [facility] HDL 64 >=40 mg/dL LAB CHEMISTRY METHOD 05/21/2025 7:57 PM EDT [facility] LDL Calculated 85 0 - 100 mg/dL LAB CHEMISTRY METHOD 05/21/2025 7:57 PM EDT [facility] VLDL Cholesterol Ced 28.6 mg/dL LAB CHEMISTRY METHOD 05/21/2025 7:57 PM EDT [facility] Non HDL Chol. (LDL+VLDL) 114 <145 mg/dL LAB CHEMISTRY METHOD 05/21/2025 7:57 PM EDT [facility] Chol/HDL Ratio 2.8 0.0 - 4.4 LAB CHEMISTRY METHOD 05/21/2025 7:57 PM EDT [facility] Blood Venous blood specimen / Unknown Venipuncture / Unknown 05/21/2025 1:40 PM EDT 05/21/2025 1:40 PM EDT Laura TORRES LAB BLOOD ORDERABLES Final Result [facility] [address] [place] [address], * (ABNORMAL) Hemoglobin A1c (05/21/2025 1:40 PM EDT) Hemoglobin A1C 6.8(H) <6.5 % LAB CHEMISTRY METHOD 05/21/2025 8:47 PM EDT [facility] Mean Bld Glu Estim. 148 mg/dL LAB CHEMISTRY METHOD 05/21/2025 8:47 PM EDT [facility] Blood Venous blood specimen / Unknown Venipuncture / Unknown 05/21/2025 1:40 PM EDT 05/21/2025 1:40 PM EDT us Laura TORRES LAB BLOOD ORDERABLES Final Result Performing Organization Address [facility]/ZIP Co de Phone Number [facility] [address] [place] [address], [place] [phone] * (ABNORMAL) Microalbumin creatinine urine ratio (12/20/2024 9:37 AM EST) Creatinine, Urine 558.0 mg/dL LAB CHEMISTRY METHOD 12/20/2024 1:35 PM EST [facility] Microalb, Ur 172.0(H) 0.0 - 29.0 mg/L LAB CHEMISTRY METHOD 12/20/2024 1:35 PM EST [facility] Microalb/Crea t Ratio 31(H) <30 mg/g creat LAB CHEMISTRY METHOD 12/20/2024 1:35 PM EST [facility] Urine Urine specimen from urethra / Unknown Non-blood Collection / Unknown 12/20/2024 9:37 AM EST 12/20/2024 9:37 AM EST Laura TORRES LAB URINE ORDERABLES Final Result Performing Organization Address [facility] Co de Phone Number [facility] [address] [place] [address], [place] [phone] * MG Mammo Digital Screening w Curtis bilat (10/13/2024 1:49 PM EST) Anatomical Region Laterality Modality Breast Bilateral Mammography 10/13/2024 4:20 PM EST Impressions 10/13/2024 4:22 PM EST No mammographic evidence for malignancy. BI-RADS CATEGORY: 1 - NEGATIVE RECOMMENDATION: Screening bilateral mammogram is recommended in 1 year. Screening bilateral mammogram is recommended in 1 year. -------- FINAL REPORT -------- Dictated By: Milka Escobar Dictated Date: 10/13/2024 16:20 ET Assigned Physician: Milka Escobar Reviewed and Electronically Signed By: Milka sEcobar Signed Date: 10/13/2024 16:22 ET Workstation ID: [id number] Transcribed By: Self Edit Transcribed Date: 10/13/2024 16:20 ET Narrative 10/13/2024 4:22 PM EST EXAMINATION TYPE: MG MAMMO DIGITAL SCREENING W CURTIS BILAT DATE OF EXAM ORDERED: 10/13/2024 1:38 PM COMPARISON: Prior studies, latest from 09/10/2023. REASON FOR STUDY: Breast cancer screen, avg risk, asymptomatic (Age => 40y) TECHNIQUE: Bilateral mediolateral oblique and craniocaudal views were obtained digitally with 3-D mammogram (digital breast tomosynthesis) with CAD. Computer-aided detection was utilized in evaluation of this examination (SecondLook; iCAD). FINDINGS: The breast tissue distribution pattern is unchanged. There is no suspicious mass, suspicious calcifications or suspicious architectural distortion. BREAST DENSITY: B - There are scattered areas of fibroglandular density. Procedure Note Milka Escobar MD - 10/13/2024 EXAMINATION TYPE: MG MAMMO DIGITAL SCREENING W CURTIS BILAT DATE OF EXAM ORDERED: 10/13/2024 1:38 PM COMPARISON: Prior studies, latest from 09/10/2023. REASON FOR STUDY: Breast cancer screen, avg risk, asymptomatic (Age =>42y) TECHNIQUE: Bilateral mediolateral oblique and craniocaudal views wereobtained digitally with 3-D mammogram (digital breast tomosynthesis) withCAD. Computer- aided detection was utilized in evaluation of thisexamination (SecondLook; iCAD). FINDINGS: The breast tissue distribution pattern is unchanged. There is nosuspicious mass, suspicious calcifications or suspicious architecturaldistortion. BREAST DENSITY: B - There are scattered areas of fibroglandular density. IMPRESSION: No mammographic evidence for malignancy. BI-RADS CATEGORY: 1 - NEGATIVE RECOMMENDATION: Screening bilateral mammogram is recommended in 1 year. Screeningbilateral mammogram is recommended in 1 year. -------- FINAL REPORT -------- Dictated By: Milka Escobar Dictated Date: 10/13/2024 16:20 ET Assigned Physician: Milka Escobar Reviewed and Electronically Signed By: Milka Escobar Signed Date: 10/13/2024 16:22 ET Workstation ID: [id number] Transcribed By: Self Edit Transcribed Date: 10/13/2024 16:20 ET Berta Aiken MD IMG BI PROCEDURES Final Result * Diabetes Eye Exam (03/21/2024) Pathologist [facility] Diabetes: Annual Retina Eye Exam abstracted Historical Provider HEALTH MAINTENANCE Final Result * Diabetes Foot Exam (09/07/2023) [facility] Diabetes: Annual Foot Exam abstracted Result [facility] Historical Provider HEALTH MAINTENANCE Final Result * Colonoscopy (04/21/2023) [facility] Colonoscopy no interpretation , abstracted Anatomical Region Laterality Modality Other Historical Provider HEALTH MAINTENANCE Final Result * Depression Screening (06/05/2021) Pathologist Counts include 234 beds at the [facility] Depression Screening abstracted Historical Provider HEALTH MAINTENANCE Final Result from Last 3 Months or Most Recently Relevant to Health Maintenance Insurance [facility] MEDICARE Member Subscriber Plan / Payer (Ef fective 2025-Present) Name:ALYSSA RAGLAND Relation to Subscriber:Self Name:Onel Ragland Payer ID:[id number] Group ID:[id number] Type:Not on file Address: [place] [address] [address] [place] [address] Care Teams Production Troubleshooter Relationship Specialty Start Date End Date Berta Aiken MD [address] [place] [id number] PCP - General Internal Medicine 03/03/21
--- OUTSIDE RECORDS SUMMARY | 2025-08-13 13:28 | XMS_ITS | Clinical Summary ---
Author Organization [facility] Address [address] [place] [address] Care Team Providers Care Recycling Technician Name Role Phone Berta Aiken MD Primary Care Prov ider Allergies Active Allergy Reactions Criticality Noted Date Comments Blueberry Flavoring Agent (Non-Screening) 05/16/2015 Bluberry fruit Bupropion 05/16/2015 Hives Cattle Epithelium 10/06/2020 Clonidine Anaphylaxis High 08/13/2015 Dust Mite Extract 10/06/2020 Levofloxacin 05/27/2016 Reaction not mentioned Other 04/08/2016 Raspberry 04/08/2016 Robert Grass Pollen Allergen 10/06/2020 Tree Extract 10/06/2020 Tree pollen Varenicline 05/27/2016 violent behavior Medications Medication Sig Dispensed Refills Start Date End Date Status albuterol (PROVENTIL HFA;VENTOLIN HFA) 108 (90 Base) MCG/ACT inhaler Inhale 2 puffs into the lungs. 0 04/16/2019 Active Alpha-Lipoic Acid 600 MG CAPS take 1 capsule by mouth once daily 0 02/05/2019 Active ALPRAZolam (XANAX) 0.5 MG tablet Take 1 tablet (0.5 mg total) by mouth. 0 Active atorvastatin (LIPITOR) tablet 20 mg Take 1 tablet (20 mg total) by mouth. 0 05/15/2019 Active ipratropium (ATROVENT HFA) 17 MCG/ACT inhaler inhale 2 puffs by mouth every 6 hours 0 07/06/2019 Active B Complex Vitamins (RA B-COMPLEX) TABS take 1 tablet by mouth once daily 0 05/15/2019 Active Brexpiprazole 2 MG TABS Take 2 mg by mouth. 0 Activ e celecoxib (CeleBREX) 200 MG capsule Take 200 mg by mouth. 0 Active cetirizine (ZyrTEC) 10 MG tablet Take 1 tablet (10 mg total) by mouth. 0 05/15/2019 Active Cholecalciferol (VITAMIN D3) 1000 units CAPS Take 2 capsules by mouth. 0 08/08/2019 Active Diclofenac Sodium 1 % GEL topical Apply 1 g topically. 0 01/17/2019 Active ferrous sulfate 325 (65 FE) MG tablet take 1 tablet by mouth once daily 0 07/23/2019 Active fluticasone (FLONASE) 50 MCG/ACT nasal spray instill 2 sprays into each nostril once daily 0 05/10/2019 Active furosemide (LASIX) 20 MG tablet Take 1 tablet (20 mg total) by mouth. 0 07/12/2019 Active glucagon for injection (GLUCAGON EMERGENCY KIT) 1 mg Inject 1 mg into the muscle. 0 05/30/2018 Active ipratropium-albuterol (DUO-NEB) 0.5-2.5 mg/mL nebulizer Inhale 3 mL into the lungs. 0 08/08/2019 Active lidocaine-prilocaine (EMLA) cream Apply to feet at night 0 05/15/2019 Active pregabalin (LYRICA) capsule 150 mg take 1 capsule by mouth every 8 hours 0 05/24/2019 Active methocarbamol (ROBAXIN) 750 MG tablet take 1 tablet by mouth three times a day 0 06/05/2019 Active predniSONE (DELTASONE) tablet 20 mg Take 20 mg by mouth. 0 Active Cyanocobalamin ER (RA VITAMIN B-12 TR) 1000 MCG TBCR take 1 tablet by mouth once daily 0 12/20/2017 Active SUMAtriptan (IMITREX) 100 MG tablet May repeat dose once after 2 hours, if needed. 0 01/09/2019 Active traMADol (ULTRAM) 50 MG tablet Take 50 mg by mouth. 0 07/12/2019 Active verapamil (CALAN) 120 MG tablet take 1 1/2 tablets by mouth at bedtime 0 03/06/2019 Active fluticasone-salmetero l (WIXELA INHUB) 250-50 MCG/DOSE DISKUS inhale 1 dose by mouth every 12 hours 0 07/06/2019 Active vitamin E 400 UNIT capsule Take 2 capsules (800 Units total) by mouth. 0 07/12/2019 Active clonazePAM (KlonoPIN) 1 MG tablet Take 1 tablet (1 mg total) by mouth 3 (three) times a day as needed. 0 08/10/2023 Active EPINEPHrine 0.3 MG/0.3ML SOSY 1 each. 0 09/07/2021 Active famotidine (PEPCID) 20 MG tablet Take 1 tablet (20 mg total) by mouth 2 (two) times a day. 0 08/22/2023 Active Trelegy Ellipta 100-62.5-25 MCG/ACT AEPB INHALE 1 PUFF INTO THE LUNGS DAILY 0 08/23/2023 Active gabapentin (NEURONTIN) 600 MG tablet 0 08/21/2023 Active hydrOXYzine (VISTARIL) 25 MG capsule TAKE 1 CAPSULE BY MOUTH TWICE DAILY NEEDED FOR ANXIETY 0 08/11/2023 Active temazepam (RESTORIL) 30 MG capsule Take 1 capsule (30 mg total) by mouth every night at bedtime as needed. for sleep 0 07/27/2023 Active Active Problems Problem Noted Date Diagnosed Date Arthritis of knee, left 08/14/2019 Family History Medical History Relation Name Comments Cancer Father Cancer Mother Clotting disorder Sister Diabetes Sister Relation Name Status Comments Father Mother Sister Social History Tobacco Use Types Packs/Day Years Used Date Smoking Tobacco: Former Cigarettes Alcohol Use Standard Drinks/Week Comments Not Currently 0 (1 standard drink = 0.6 oz pur e alcohol) Sex and Gender Information Value Date Recorded Sex Assigned at Not on file Gender Identity Not on file Sexual Orientation Not on file Job Start Date Occupation Industry Not on file Not on file Not on file Last Filed Vital Signs Vital Sign Reading Time Taken Comments Blood Pressure 136/63 08/29/2023 1:48 PM EDT Pulse 84 08/29/2023 1:48 PM EDT Temperature 36.8 C (98.2 F) 08/29/2023 1:48 PM EDT Respiratory Rate - - Oxygen Saturation 99% 08/29/2023 1:48 PM EDT Inhaled Oxygen Concentration - - Weight 93.9 kg (207 lb) 08/29/2023 1:48 PM EDT Height 180.3 cm (5' 11 ) 08/29/2023 1:48 PM EDT Body Mass Index 28.87 08/29/2023 1:48 PM EDT Plan of Treatment Health Maintenance Due Date Last Done Comments Hepatitis B Vaccines (1 of 3 - 3-dose series) 1967 Hepatitis C Screening 1967 Depression Screening 1979 BMI Counseling 1985 Preventative Health Evaluation 1985 Cervical Cancer Screening (Pap Smear) 1988 Colon Cancer Screening (Colonoscopy) 2012 Pneumococcal Vaccine (2 of 2 - PCV) 12/01/2016 12/01/2015 Breast Cancer Screening (Mammogram) 2017 Shingrix-Zoster Vaccine (2 of 2) 05/05/2018 03/10/2018 COVID-19 Vaccine (3 - season) 2025 03/23/2021, 02/21/2021 Influenza Vaccine (#1) 2025 2, 09/07/2021, 07/31/2020, Additional history exists DTap / Tdap / Td (2 - Td or Tdap) 12/01/2025 12/01/2015 RSV Ped < 20 months Aged Out No longe r eligible based on patient's age to complete this topic Care Teams Recycling Technician Relationship Specialty Start Date End Date Berta Aiken MD PCP - General Internal Medicine 09/22/21
--- OUTSIDE RECORDS SUMMARY | 2025-08-13 13:28 | XMS_ITS | Encounter Summary ---
Author Organization [facility] Address [address] [place] [address] Care Team Providers Care Rest Room Attendant Name Role Phone Berta Aiken MD Primary Care Prov ider Reason for Visit * Reason Onset Date Comments Fitting for DME 08/13/2025 Encounter Details Date Type Department Care Team ([facility] st Contact Info) Description 08/13/2025 Telephone Adult Medicine [facility] [address] [place] [phone] Marissa Haider MA Social History Tobacco Use Types Packs/Day Years [...] care for your loved ones. For example, childrens club attendant or elderly care for an older [...] AM EST documented as of this encounter Progress Notes * Marissa Haider MA - 08/13/2025 9:24 AM EDT Confirmation of Order The Comforter Mechanism for a Lift Chair The Comforter Mechanism for In your in basket. Thank you in advance documented in this encounter Plan of Treatment Upcoming Encounters Date Type Department Care Team (Late st Contact Info) Description 08/30/2025 1:30 PM EDT Office Visit Adult Medicine - [place] [address] [place] [phone] Chano Wright PA [address] [place] [address] 09/11/2025 4:00 PM EST Office Visit Pulmonology - [place] [address] [phone] Kristen Mckeon NP [address] [place] [phone] 09/18/2025 9:15 AM EST Office Visit Orthopedic Surgery - [address] [phone] Andry Ruff DPM [address] [phone] 10/10/2025 10:00 AM EST Office Visit Adult Medicine - [place] [address] [place] [phone] Berta Aiken MD [address] [place] [address] 10/29/2025 10:00 AM EST Office Visit Orthopedic Surgery [place] [address] [phone] Andry Ruff DPM [address] [phone] 11/01/2025 9:45 AM EST Hospital [facility] [place] Main OR [address] [place] [phone] Andry Ruff DPAslhee [address] [phone] 11/01/2025 9:45 AM EST - 11/01/2025 11:30 AM EST Surgery Main OR [address] [place] [phone] Andry Ruff DPM [address] [phone] BUNIONECTOMY-Left [[id number] (CPT ) +2 more] 11/07/2025 9:15 AM EST Appointment Radiology Department [address] [phone] 11/14/2025 10:00 AM EST Office Visit Orthopedic Surgery - [place] [address] [phone] Andry Ruff DPM [address] [phone] 01/08/2026 9:30 AM EDT Office Visit Gastroenterology - [place] 175 [place] 175 [facility] [address] [place] [phone] Lindsay Sneed PA [address] [facility] [address] [place] [address] Scheduled Procedures Name Priority Associated Diagnoses Date/Ti [...] documented as of this encounter Care Teams Rest Room Attendant Relationship Specialty Start Date End Date Berta Aiken MD [address] [place] [id number] PCP - General Internal Medicine 03/03/21 documented as of this encounter
== END 2025-08-13 11:55 | disposition home or self-care (01) ==
LOC: HO.ENCR 11:09
PROVIDERS: PCP Internal Medicine; Visit Provider Dietitian, Registered
DX: E66.811 Obesity, class 1 (principal)

== ENCOUNTER → 2025-08-13 11:09 | Outpatient (BNVA) | payer OTHER, SELFPAY | PROVIDERS: PCP Internal Medicine; Visit Provider Dietitian, Registered | DX: Z71.3 Dietary counseling and surveillance (principal); E66.811 Obesity, class 1 | CPT/HCPCS: 97802 ==